=== PATIENT | male | born 1940 | race Caucasian/White ===

== ENCOUNTER 2016-02-17 06:37 | Inpatient (IN) | payer MEDICARE, OTHER ==
[2016-02-17] VITALS (8 sets, daily range): BP systolic 119–140; BP diastolic 67–79; PULSE 73–89; RESP 18–24; O2SAT 90–100
[~2016-02-17] VITALS: Ht 172.7 cm; Wt 88.6 kg
[2016-02-17] MEDS ORDERED: Polyethylene Glycol (PEG) 17 Gm Powder PO PRN (09:25)
[2016-02-17] MEDS ORDERED: Alum-Mag Hydrox-Simeth 30 mL Suspension PO PRN (09:25)
[2016-02-17 09:41] LABS: BASOPHILS % (AUTO) 0.5 % (0-3); EOSINOPHILS % (AUTO) 0 % (0-5); MONOCYTES % (AUTO) 2.5 % (4-12); Mean Corpuscular Hemoglobin 34.7 pg (27.0-35.0); Mean Corpuscular Volume 108.7 fL (81-100); NEUTROPHILS % (AUTO) 93.7 % (40-74); Platelet Count 54 bil/L (150-400)
[2016-02-17] MEDS ORDERED: GABA-502 PO (10:26)
[2016-02-17] MEDS ORDERED: OMEP20CA11 PO (10:26)
[2016-02-17] MEDS ORDERED: PRE10 PO (10:26)
[2016-02-17] MEDS ORDERED: METF500T4 PO (10:26)
[2016-02-17] MEDS ORDERED: WARF2.5T82 PO (10:26)
[2016-02-17] MEDS ORDERED: ADAL40PE SQ (10:26)
[2016-02-17] MEDS ORDERED: CALC3.8S NASAL (10:26)
[2016-02-17] MEDS ORDERED: CHOL10008 PO (10:27)
[2016-02-17] MEDS ORDERED: 0.9% Sodium Chloride 1,000 ML IV ONE (10:30)
[2016-02-17] MEDS ORDERED: Glucose 40% Oral Gel 15 Gm Tube PO PRN (10:30)
[2016-02-17] MEDS ORDERED: METH2.5T PO (10:33)
[2016-02-17] MEDS ORDERED: LEUC5TAB PO (10:35)
--- NOTE | 2016-02-17 11:23 | NUR ---
PCC Admit Pt admitted from [facility]. Transported by ambulance. Report received from Leilani madrigal RN. Pt vitals WNL, Alert and oriented x3, pt demonstrates some memory deficits with word searching. Pt positive for Influenza Type A. Placed on Droplet precautions. Due to report of confusion and recent Hx of falls pt placed on Todd bed alarm.
[2016-02-17] MEDS ORDERED: predniSONE 5 mg Tablet PO ONE (11:55)
[2016-02-17] MEDS ORDERED: predniSONE 1 mg Tablet PO ONE ×2 (11:55→13:20)
--- NOTE | 2016-02-17 12:09 | DRSVH ---
PROCEDURE: X-RAY CHEST, TWO VIEWS ([id number]) INDICATIONS: other TECHNIQUE: 2 views of the chest were acquired. COMPARISON: [facility], CT, THORAX WITHOUT CONTRAST, 05/13/2014, 14:39. [facility], CR, CH EST 2 VIEW, 04/22/2014, 17:36. FINDINGS: Surgical changes and devices: None. Lungs and pleura: No pleural effusions or pneumothorax. Lungs are clear. Mediastinum: The thoracic aorta is markedly tortuous. Heart size is normal. Bones and chest wall: No suspicious bony abnormalities. Soft tissues appear unremarkable. IMPRESSION: Marked tortuosity of the thoracic aorta unchanged from prior studies. No acute cardiopulm onary findings. Dictated by: Roseanne Whipple M.D. on 02/17/2016 at 12:07 Approved by: Roseanne Whipple M.D. on 02/17/2016 at 12:07
[2016-02-17] MEDS: Albuterol-Ipratropium 3 mL Inhalation Solution NEB SCH ×3 (14:34→20:35)
--- NOTE | 2016-02-17 17:14 | NUR ---
Mentation Upon initial assessment pt's mentation demonstrated memory loss, word searching and delayed responses. Over shift Pt mentation has improved significantly. Pt has been using call light appropriately, and waiting for staff help for his needs. Pt's conversation is more fluid and he states that his thought process is much clearer.
--- NOTE | 2016-02-17 18:27 | PCM.HPMED ---
Subjective Date of Service Feb 17, 2016 Primary Provider: Admitting Physician: Alexandra Curran MD Primary Care Physician: Leilani Sultana MD Attending Physician: Alexandra Curran MD Admit Status: Direct Admit (From [facility]) Chief Complaint: Ground level fall Shortness of breath History of Present Illness: Patient is a 76 y.o. M with medical history of sweets syndrome, DVT anticoagulated with warfarin, adrenal insufficiency, chronic dyspnea, chronic steroid use, osteopenia, hyperthyroidism. Patient transferred from [facility] for worsening shortness of breath, positive influenza A, post ground level fall on warfarin. Patient stated that he began to feel dizzy and short of breath two days ago precipitating his first fall onto concrete where he stated he tripped and hit his nose. Patient stated that with his shortness of breath he has had a cough, headache, fever and chills, runny nose. Patient did not seek medical attention. The follow day patient woke up feeling dizzy and nauseous, while walking around his house patient stated his shortness of breath and dizziness worsened and he fell onto carpet hitting his head. Patient is able to remember falling and able to recall events before and after his fall. Patient reports that his is sick at home with the flu and he received the flu vaccine but had a "bad reaction" to it. Patient denies diarrhea, constipation, loss of bowel and bladder control. Review of Systems: Comprehensive review of systems conducted and was negative except for the pertinent positives listed above. 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 External ears normal. Eyes: PERRLA, EOMI. Anicteric sclerae. Mouth: Mouth Normal, Mucous Membranes Moist/[place] Neck: Neck supple with full range of motion. Chest & Lungs: Equal chest rise and fall, no chest wall tenderness, On auscultation diminished breath sounds at bases bilaterally diffuse crackles, wheezes, no rhonchi. Cardiovascular: Regular Rate/Rhythm, Normal S1, Normal S2, No Murmurs/Rubs/ Gallops Abdomen: Non-tender, Non-distended, No masses, Normoactive bowel tones, Soft Musculoskeletal: Normal Range of Motion Extremities: Multiple healing ulcerations present legs below knee anterior and posterior erythematous without purulent discharge, No cyanosis/clubbing/edema bilaterally Neurological: Confusion with long-term memory deficit, Grossly Neurologically Intact, Cranial Nerves 2-12 Intact, Normal Speech, Strength Normal 4/4 ext, Sensation Intact, Cerebellar Function nl Finger-Nose, Cerebellar Function nl Heel-Barron, Reflexes Normal Lab and Diagnostics Labs Laboratory Tests Test 02/17/16 09:35 White Blood Count 5.5th/mm3 (3.8-10.1) Red Blood Count 2.42mil/mm3 (4.40-5.80) Hemoglobin 8.4g/dL (13.8-17.2) Hematocrit 26.3% (41.0-50.0) Mean Corpuscular Volume 108.7fL (81-100) Mean Corpuscular Hemoglobin 34.7pg (27.0-35.0) Mean Corpuscular Hemoglobin Concent 31.9% (32.0-37.0) Red Cell Distribution Width 15.8% (12.3-15.4) Platelet Count 54bil/L (150-400) Neutrophils (%) (Auto) 93.7% (40-74) Lymphocytes (%) (Auto) 2.2% (14-46) Monocytes (%) (Auto) 2.5% (4-12) Eosinophils (%) (Auto) 0% (0-5) Basophils (%) (Auto) 0.5% (0-3) Sodium Level 135mEq/L (134-144) Potassium Level 4.5mEq/L (3.5-5.2) Chloride Level 100mEq/L (97-108) Carbon Dioxide Level 22mmol/L (18-29) Blood Urea Nitrogen 16mg/dL (8-27) Creatinine 0.94mg/dL (0.76-1.27) Estimat Glomerular Filtration Rate 83mL/min (>59) Glucose Level 210mg/dL (60-99) Calcium Level 8.4mg/dL (8.5-10.1) Total Bilirubin 0.6mg/dL (0.0-1.2) Aspartate Amino Transf (AST/SGOT) 19U/L (0-50) Alanine Aminotransferase (ALT/SGPT) 20U/L (0-44) Alkaline Phosphatase 46U/L (25-160) Total Protein 7.0g/dL (6.4-8.4) Albumin 3.5g/dL (3.4-5.0) Procalcitonin 0.32ng/mL (See Comment) Result Diagram: 02/17/16 0935 X-Rays, CTs and MRIs X-RAY CHEST, TWO VIEWS IMPRESSION: Marked tortuosity of the thoracic aorta unchanged from prior studies. No acute cardiopulmonary findings. Dictated by: Roseanne Whipple M.D. on 02/17/2016 at 12:07 Approved by: Roseanne Whipple M.D. on 02/17/2016 at 12:07 Assessment & Plan Patient is a 76 y.o. M with medical history of sweets syndrome, DVT anticoagulated with warfarin, adrenal insufficiency, chronic dyspnea, chronic steroid use, osteopenia, hyperthyroidism. Patient transferred from [facility] for treatment of worsening shortness of breath, positive influenza A, post ground level fall on warfarin. 1. Ground level fall, present on admission, active - Patient on Warfarin INR 1.7 - Chronically low platelet PLT 02/17/16 90 - CT Head done at [facility] negative for acute intracranial process - MR Brain ordered, pending - Hold Warfarin 2. Viral URI + Influenza A, present on admission, active - + Influenza A completed at [facility] - Tamiflu 75 mg total 10 doses - 1 L IV Fluid NS @ 80 mls/hr given - Monitor Vitals Q4 - Bed rest with single assist to bathroom - Full diet - CXR negative for pulmonary effusion - Procalcitonin, 0.32 - Albuterol/ipatropium NEB Q4 PRN for SOB - Acetaminophen 650 mg Q6 PO PRN pain/fever Chronic Illnesses present on admission: 3.Sweets Syndrome -Continue prednisone 14 mg QD -Patient followed by RheumatologistDrt. Gómez at [facility] fax: [phone], requests MR results when completed 4.Steroid induced DM -Low dose correctional insulin protocol ordered - A1C ordered 5. Right leg ulcer - Monitor, consult wound care if needed 6. Adrenal insufficiency - Continue Prednisone 7. Iodine induced hyperthyroidism - TSH ordered, continue to monitor 8.Steroid induced osteoporosis - Continue to monitor 9. DVT, prothrombin 2 gene mutation - Hold Warfarin until MR results, consider restarting if negative brain MR PRNs Senna Miralax Zofran Patient is admitted under inpatient status with expected length of stay greater than 2 midnights due to severity of presenting symptoms, risk of adverse event, and complexity of treatment plan. DVT prophylaxis: SCDs in place . Pain Evaluation: Adequate Pain Control VTE Prophylaxis: SCDs Resuscitation Status: CPR: Attempt Resuscitation Attending Statement The patient was seen and examined together with Dr. Lorenzo on 02/17/2016 and I agree with the history, exam and plan as outlined in the note above. . MATILDE LORENZO DO Feb 17, 2016 10:30 Luis Alberto Sheikh MD Feb 18, 2016 15:22
--- NOTE | 2016-02-17 19:47 | DRSVH ---
PROCEDURE: MRI BRAIN WITH AND WITHOUT CONTRAST ([id number]) INDICATIONS: ground level fall on Coumadin TECHNIQUE: Noncontrast axial T1 spin echo, axial T2 fast spin echo, sagittal and axial FLAIR, coronal T2 fast sp in echo, axial gradient echo, axial diffusion and ADC through the brain. After the administration of contrast, axial and coronal 3D VIBE or T1 spin echo with fat saturation through the brain. COMPARISON: [facility], CT, HEAD WITHOUT CONTRAST, 02/17/2016, 2:14. FINDINGS: Image quality: Limited by motion. CSF Spaces: Basal cisterns are patent. No extra-axial fluid collections. Ventricles are normal in size and shape. Brain: No midline shift. No intracranial bleeds or masses. No abnormal intracranial enhancement. The brainstem appears normal. Diffusion-weighted images demonstrate no acute ischemic insults. No ar eas of encephalomalacia. No susceptibility weighted abnormalities are identified in the brain parenc hyma. Scattered punctate and confluent areas of increased T2 signal noted in the periventricular, stock bcortical and pontine white matter tracts compatible with mild to moderate chronic microvascular isch emic changes. Normal intravascular flow voids are present. Skull and face: Calvarial marrow is normal in signal. Orbits appear normal. Sinuses: Mild mucosal thickening noted in the maxillary sinuses and scattered throughout the ethmoid air cells bilaterally. The mastoids appear clear. IMPRESSION: 1. No acute intracranial disease process. 2. Mild, diffuse volume loss. 3. [id number]-[id number] periventricular, subcortical and pontine white matter chronic microvascular isch emic changes. 3. Mild bilateral maxillary sinus and ethmoid air cell mucosal thickening. Please correlate with cl inical data. Dictated by: Melissa Mazariegos MD, PhD on 02/17/2016 at 19:46 Approved by: Melissa Mazariegos MD, PhD on 02/17/2016 at 19:46
[2016-02-18] VITALS (11 sets, daily range): BP systolic 118–140; BP diastolic 64–75; PULSE 67–100; RESP 18–22; O2SAT 93–99
[2016-02-18] MEDS: Albuterol-Ipratropium 3 mL Inhalation Solution NEB SCH ×6 (00:30→20:14)
[2016-02-18 05:35] LABS: BASOPHILS % (AUTO) 0.8 % (0-3); EOSINOPHILS % (AUTO) 4.3 % (0-5); MONOCYTES % (AUTO) 10.5 % (4-12); Mean Corpuscular Volume 108.8 fL (81-100); NEUTROPHILS % (AUTO) 69.6 % (40-74); Platelet Count 55 bil/L (150-400)
--- NOTE | 2016-02-18 07:53 | NUR ---
Respiratory Pt skipped midnight neb treatment, per RT was told pt preferred not to be woken at night. This morning w/ reassessment pt sound more wheezy and SOB, felt somewhat better with neb treatment and felt that repositioning self on side help him "move stuff" in his lungs, sats high 90 on 2.5L NC
[2016-02-18] MEDS ORDERED: predniSONE 20 mg Tablet PO SCH (08:30)
[2016-02-18] MEDS: predniSONE 5 mg Tablet PO SCH (09:21)
[2016-02-18] MEDS: predniSONE 1 mg Tablet PO SCH (09:21)
--- NOTE | 2016-02-18 12:39 | NUR ---
Transfer to [facility] Pt transferred to [facility] at 1230 to room 3014. Report given to Cristina Rider RN. Pt on droplet precautions for Influenza A. Transferred by W/C. Addendum: 02/18/16 at 1244 by GABRIEL WOODY RN Belongings gathered and accounted for, transferred with patient
--- NOTE | 2016-02-18 12:45 | NUR ---
Transfer to [facility] Patient arrived to unit via wheelchair. Patient alert and oriented. Denied chest pain/discomfort, pain, abdominal discomfort or nausea. Patient reporting sob with exertion and at rest. Patient saline locked and on room air. Neb treatment given prior to transfer. Addendum: 02/18/16 at 1432 by TULIO RDZ RN Rhonchi bilateral mid/lower lungs, wheezes throughout.
[2016-02-18] MEDS ORDERED: Albuterol-Ipratropium 3 mL Inhalation Solution NEB PRN (14:45)
--- NOTE | 2016-02-18 15:42 | PCM.PNMED ---
Subjective Date of Service Feb 18, 2016 Subjective Patient is a 76 y.o. M with medical history of sweets syndrome, DVT anticoagulated with warfarin, adrenal insufficiency, chronic dyspnea, chronic steroid use, osteopenia, hyperthyroidism. Patient transferred from [facility] for treatment of worsening shortness of breath, positive influenza A, post ground level fall on warfarin. Hospital Day 1 Overnight no events reported by nursing Today patient reports that he did not sleep well, and was tired this morning. He noted that he is breathing a harder than yesterday, is coughing more, has a sore throat. Patient denies fever, chills, nausea, vomiting, change in vision, ROS negative except as mentioned above Exam Vital Signs Vital Sign - Last Date Time Temp Pulse Resp B/P Pulse Ox O2 Delivery O2 Flow Rate FiO2 02/18/16 05:14 83 02/18/16 04:42 18 97 Nasal Cannula 3.00 02/18/16 04:08 36.7 134/74 Intake and Output 02/17/16 02/17/16 02/18/16 Cumulative From/Thru 15:00 23:00 07:00 02/17/16 08:58 - 02/18/16 06:03 Intake Total 1616 ml 420 ml 2036 ml Output Total 500 ml 550 ml 1050 ml Balance 1116 ml -130 ml 986 ml Intake Oral 1150 ml 420 ml 1570 ml IV Total 466 ml 466 ml Output Urine Total 500 ml 550 ml 1050 ml # Voids 2 2 Exam General: Alert, Oriented X3, Cooperative, non distressed, able to ambulate with assistance Head: Normocephalic, atraumatic. External ears normal. Eyes: PERRLA, EOMI. Anicteric sclerae. Mouth: Mouth Normal, Mucous Membranes Moist/[place] Neck: Neck supple with full range of motion. Chest & Lungs: Equal chest rise and fall, no chest wall tenderness, On auscultation coarse breath in all lung [place]kinson bilaterally diffuse wheezes, no rhonchi, no crackles. Cardiovascular: Regular Rate/Rhythm, Normal S1, Normal S2, No Murmurs/Rubs/ Gallops Abdomen: Non-tender, Non-distended, No masses, Normoactive bowel tones, Soft Musculoskeletal: Normal Range of Motion Extremities: Multiple healing ulcerations present legs below knee anterior and posterior erythematous without purulent discharge, No cyanosis/clubbing/edema bilaterally Neurological: Confusion with long-term memory deficit, Grossly Neurologically Intact, Cranial Nerves 2-12 Intact, Normal Speech, Strength Normal 4/4 ext, Sensation Intact, Cerebellar Function nl Finger-Nose, Cerebellar Function nl Heel-Barron, Reflexes Normal IVs and Medications Medications Reviewed: Medications were reviewed in detail Medications Prednisone 11 mg, currently on taper Calcitonin-princess Nasal [place] 1 puff QD Omeprazole 20 mg Metformin 500 mg BID Folic Acid 3 mg PO QD Gabapentin 300 mg TID Acetaminophen 650 mg PO PRN pain Adaliumab 40 mg SQ Prednisone 1 mg Daily Itraconazole 200 mg PO QD Vitamin D3 1000 U QD Methotrexate 10 MG PO QD Warfarin 2.5 mg PO QD Leucovorin 5 mg Lab and Diagnostics Laboratory Tests Test 02/18/16 05:28 White Blood Count 2.6th/mm3 (3.8-10.1) Red Blood Count 2.17mil/mm3 (4.40-5.80) Hemoglobin 7.6g/dL (13.8-17.2) Hematocrit 23.6% (41.0-50.0) Mean Corpuscular Volume 108.8fL (81-100) Mean Corpuscular Hemoglobin 35.0pg (27.0-35.0) Mean Corpuscular Hemoglobin Concent 32.2% (32.0-37.0) Red Cell Distribution Width 15.8% (12.3-15.4) Platelet Count 55bil/L (150-400) Neutrophils (%) (Auto) 69.6% (40-74) Lymphocytes (%) (Auto) 14.8% (14-46) Monocytes (%) (Auto) 10.5% (4-12) Eosinophils (%) (Auto) 4.3% (0-5) Basophils (%) (Auto) 0.8% (0-3) Sodium Level 136mEq/L (134-144) Potassium Level 4.3mEq/L (3.5-5.2) Chloride Level 102mEq/L (97-108) Carbon Dioxide Level 22mmol/L (18-29) Blood Urea Nitrogen 20mg/dL (8-27) Creatinine 0.94mg/dL (0.76-1.27) Estimat Glomerular Filtration Rate 83mL/min (>59) Glucose Level 174mg/dL (60-99) Lactic Acid Level 1.0mmol/L (0.4-2.0) Calcium Level 8.4mg/dL (8.5-10.1) Procalcitonin 0.32ng/mL (See Comment) Result Diagram: 02/18/1652702/18/16527 X-Rays, CTs and MRIs X-RAY CHEST, TWO VIEWS IMPRESSION: Marked tortuosity of the thoracic aorta unchanged from prior studies. No acute cardiopulmonary findings. Dictated by: Roseanne Whipple M.D. on 02/17/2016 at 12:07 Approved by: Roseanne Whipple M.D. on 02/17/2016 at 12:07 MRI Brain IMPRESSION: 1. No acute intracranial disease process. 2. Mild, diffuse volume loss. 3. Ixtm-[id number]-[id number] periventricular, subcortical and pontine white matter chronic microvascular ischemic changes. 3. Mild bilateral maxillary sinus and ethmoid air cell mucosal thickening. Please correlate with clinical data. Dictated by: Melissa Mazariegos MD, PhD on 02/17/2016 at 19:46 Approved by: Melissa Mazariegos MD, PhD on 02/17/2016 at 19:46 Assessment & Plan Patient is a 76 y.o. M with medical history of sweets syndrome, DVT anticoagulated with warfarin, adrenal insufficiency, chronic dyspnea, chronic steroid use, osteopenia, hyperthyroidism. Patient transferred from [facility] for treatment of worsening shortness of breath, positive influenza A, post ground level fall on warfarin. 1. Viral URI + Influenza A, present on admission, Improving - + Influenza A completed at [facility] - Tamiflu 75 mg total 10 doses started 02/17/16 - 1 L IV Fluid NS @ 80 mls/hr given - Monitor Vitals Q4 - Full diet - CXR negative for pulmonary effusion - Procalcitonin, 0.32 - Albuterol/ipatropium NEB Q4 PRN for SOB - Acetaminophen 650 mg Q6 PO PRN pain/fever - MRI brain shows thickening of maxillary sinuses, likely related to viral URI, consider acute on chronic sinusitis 2. Ground level fall, present on admission, resolved - Base line mcc memory deficit, mentation improving - Patient on Warfarin INR 1.7 02/17/16, - Chronically low platelet PLT 02/17/16 90 - CT Head done at [facility] negative for acute intracranial process - MR Brain ordered, negative for intracranial bleed - Hold Warfarin, restart once MRI brain negative for intracranial bleed. Chronic Illnesses present on admission 3.Sweets Syndrome -Continue prednisone 14 mg QD, restart taper 02/18/16 11 mg -Patient followed by RheumatologistDrt. Gómez at [facility] fax: [phone], requests MR results when completed 4.Steroid induced DM -Low dose correctional insulin protocol ordered - A1C ordered 5. Right leg ulcer - Monitor, consult wound care if needed 6. Adrenal insufficiency - Continue Prednisone taper 02/18/16 11 mg with goal of 1 mg QD 7. Iodine induced hyperthyroidism - TSH ordered, 1.18 8.Steroid induced osteoporosis - Continue to monitor 8. DVT, prothrombin 2 gene mutation - Hold Warfarin until MR results, consider restarting if negative brain MR PRNs Sensamira Buckleyx Zoan Patient is admitted under inpatient status with expected length of stay greater than 2 midnights due to severity of presenting symptoms, risk of adverse event, and complexity of treatment plan, plan to discharge tomorrow pending resolution of respiratory distress and weakness. DVT prophylaxis: SCDs in place VTE Prophylaxis: SCDs Resuscitation Status: CPR: Attempt Resuscitation Attending Statement The patient was seen and examined together with Dr. Lorenzo on 02/18/2016 and I agree with the history, exam and plan as outlined in the note above. . MATILDE LORENZO DO Feb 18, 2016 06:53 Luis Alberto Sheikh MD Feb 19, 2016 08:18
[2016-02-18 16:38] LABS: INR 1.27 ratio
[2016-02-18] MEDS: Benzocaine-Menthol Lozenge 2/Pkg PO PRN ×2 (18:26→20:53)
[2016-02-18] MEDS: guaiFENesin 600 mg ER12 Tablet PO SCH (20:50)
[2016-02-19 00:05] VITALS: PULSE 85; RESP 18; O2SAT 93
[2016-02-19] MEDS: Albuterol-Ipratropium 3 mL Inhalation Solution NEB SCH ×6 (00:05→20:13)
[2016-02-19 06:01] VITALS: BP 137/75; PULSE 82; RESP 18; O2SAT 92
[2016-02-19 07:13] LABS: Mean Corpuscular Hemoglobin 34.2 pg (27.0-35.0); Mean Corpuscular Volume 109.1 fL (81-100)
[2016-02-19 07:33] LABS: INR 1.2 ratio
[2016-02-19] MEDS: predniSONE 1 mg Tablet PO SCH (07:33)
[2016-02-19] MEDS: predniSONE 5 mg Tablet PO SCH (07:34)
[2016-02-19 08:55] VITALS: PULSE 88; RESP 18; O2SAT 94
[2016-02-19] MEDS: guaiFENesin 600 mg ER12 Tablet PO SCH ×2 (10:16→21:05)
[2016-02-19] MEDS: Ondansetron 2 mg/mL 2 mL Inj IVPUSH PRN (10:17)
--- NOTE | 2016-02-19 10:32 | NUR ---
nausea pt states that he feels nausea "coming on" this RN gave Zofran 4mg for prevention pt resting in bed
--- NOTE | 2016-02-19 10:49 | NUR ---
KY[facility] signed. SASKIA Nickerson
[2016-02-19] MEDS: 0.9% Sodium Chloride 1,000 ML IV SCH ×2 (10:58→21:05)
--- NOTE | 2016-02-19 11:32 | NUR ---
Social Work-initial assessment/readiness for discharge: data:See initial assessment. pt is a 76 y/o male who was admitted on 02/17/16 for influenza A per H&P. Pt's insurance is [facility] and PCP is Colt Christensen MD. EMR Reviewed. Pt's readmission score is 2. SW met with pt at bedside, SW role explained. Pt is alert and oriented x3. Pt resides at home with his in [place] where he remains independent with ADLS. Pt does drive and does not any DME. Pt has no HH or SNF history. Pt has no [facility] care or [facility] benefits. SW discussed DPOA/ advanced directive paperwork, pt states he has completed this, SW encouraged pt to bring a copy into the hospital. PT worked with pt and are recommending home with HH. SW discussed HH, HH choice list provided. Pt is interested in this, pt has no agency preference. SW referred to rotating calendar and made referral to [facility] for RN,PT,OT, and [facility], access given. Pt has questions about extra assistance at home, SW explained that pt's insurance will not pay for caregiving, but did discuss private pay caregiving and provided pt with resources. F2F in folder. Pt's son to provide transport home at discharge. SW will continue to follow. Assessment:pt who would benefit from HH. Plan:Pt to discharge home when medically stable via POV. Referral made to [facility] for RN,PT,OT, and [facility], access given. Private pay caregiving resources also provided. F2F in folder.SW will continue to follow. SASKIA Nickerson Addendum: 02/19/16 at 1143 by BLAIR SESAY Amended: Links added.
[2016-02-19 12:26] VITALS: PULSE 78; RESP 18; O2SAT 97
--- NOTE | 2016-02-19 13:38 | PCM.PNMED ---
Subjective Date of Service Feb 19, 2016 Subjective No overnight events. Patient complains of generalized malaise and achiness, mild headache which is aggravated by pressure from pillow with mild nausea, relieved by lying on side. Endorses not able to take deep breaths. Denies CP, SOB, fevers or chills. Exam Vital Signs Vital Sign - Last Date Time Temp Pulse Resp B/P Pulse Ox O2 Delivery O2 Flow Rate FiO2 02/19/16 08:55 88 18 94 Room Air 02/19/16 06:01 37.1 137/75 02/18/16 09:34 2.50 Intake and Output 02/18/16 02/18/16 02/19/16 Cumulative From/Thru 15:00 23:00 07:00 02/17/16 08:58 - 02/19/16 06:01 Intake Total 534 ml 840 ml 150 ml 3560 ml Output Total 825 ml 1875 ml Balance 534 ml 15 ml 150 ml 1685 ml Intake Oral 840 ml 150 ml 2560 ml IV Total 534 ml 1000 ml Output Urine Total 825 ml 1875 ml # Voids 3 3 8 # Bowel Movements 0 0 0 Exam General: AAO X3, in mild distressed, labored breathing with cough, ill- appearing Head: mild superficial bruising of 3cm in diameter area at upper right forehead , non-tender, non-erythematous, no swelling noted HEENT: PERRLA, EOMI. Anicteric sclerae, Mucous Membranes Moist Neck: Neck supple with full ROM Chest & Lungs: Equal chest rise and fall, Mild expiratory wheezes throughout, with bibasilar crackles. Cardiovascular: RRR, No Murmurs/Rubs/Gallops Abdomen: Soft Non-tender, Non-distended, No masses, Normoactive bowel tones, Extremities: Multiple healing ulcerations present on bilateral lower extremities, no open lesions identified. No cyanosis/clubbing/edema bilaterally Neurological: Normal Speech, no focal deficits Psych: Normal mood and affect IVs and Medications Medications Reviewed: Medications were reviewed in detail Lab and Diagnostics Result Diagram: 02/19/16 0704 02/19/16 0704 X-Rays, CTs and MRIs X-RAY CHEST, TWO VIEWS IMPRESSION: Marked tortuosity of the thoracic aorta unchanged from prior studies. No acute cardiopulmonary findings. Dictated by: Roseanne Whipple M.D. on 02/17/2016 at 12:07 Approved by: Roseanne Whipple M.D. on 02/17/2016 at 12:07 MRI Brain IMPRESSION: 1. No acute intracranial disease process. 2. Mild, diffuse volume loss. 3. Leox-nu-zrrinedi periventricular, subcortical and pontine white matter chronic microvascular ischemic changes. 4. Mild bilateral maxillary sinus and ethmoid air cell mucosal thickening. Please correlate with clinical data. Dictated by: Melissa Mazariegos MD, PhD on 02/17/2016 at 19:46 Approved by: Melissa Mazariegos MD, PhD on 02/17/2016 at 19:46 Assessment & Plan Patient is a 76 y.o. M with medical history of sweets syndrome, DVT anticoagulated with warfarin, adrenal insufficiency, chronic dyspnea, chronic steroid use, osteopenia, hyperthyroidism. Patient transferred from [facility] for treatment of worsening shortness of breath, positive influenza A, post ground level fall on warfarin. Day#2. 1. Viral URI + Influenza A, present on admission, Improving - + Influenza A completed at [facility] - Tamiflu 75 mg total 10 doses started 02/17/16 - 1 L IV Fluid NS @ 100 mls/hr due to poor oral intake - Full diet - CXR negative for pulmonary effusion - Procalcitonin, 0.32, 0.34 on repeat - DuoNEB Q4 PRN - MRI brain shows thickening of maxillary sinuses, likely related to viral URI, consider acute on chronic sinusitis 2. Ground level fall, present on admission, resolved - Base line oil heaterman memory deficit, mentation improving - Patient on Warfarin INR 1.7 02/17/16, - Chronically low platelet PLT at 64 today - CT Head done at [facility] negative for acute intracranial process - MR Brain negative for intracranial bleed - Warfarin, restarted 02/19/16 pharmacy to dose - PT eval pending Chronic Illnesses present on admission 3.Sweets Syndrome -Prednisone 14 mg QD, down to his usually dosing 02/19/16 11 mg -Patient followed by Property Technician Drt. Gómez at [facility] fax: [phone], requests MR results when completed 4.Steroid induced DM -Low dose correctional insulin protocol ordered - A1C ordered 5. Right leg ulcer, present on admission. Improving. - Patient seen by wound care - Monitor, consult wound care if needed 6. Adrenal insufficiency - Continue Prednisone taper 02/19/16 11 mg with goal of 1 mg QD 7. Iodine induced hyperthyroidism - TSH ordered, 02.22 8.Steroid induced osteoporosis - Continue to monitor 9. DVT, prothrombin 2 gene mutation - Warfarin restarted as above Pain/fever: Acetaminophen 650 mg Q6H PO PRN DVT prophylaxis: SCDs in place Dispo: Anticipate discharge home tomorrow. VTE Prophylaxis: SCDs VTE Mechanical Devices: Venous Foot Pump Resuscitation Status: CPR: Attempt Resuscitation Attending Statement The patient was seen and examined together with Dr. Day on 02/19/2016 and I agree with the history, exam and plan as outlined in the note above. Miguelina Day DO Feb 19, 2016 10:18 Jose Miguel Campbell MD Feb 20, 2016 12:18 Miguelina Day DO Feb 19, 2016 10:18
[2016-02-19 14:21] VITALS: BP 147/87; PULSE 84; RESP 18; O2SAT 94
[2016-02-19 20:40] VITALS: BP 141/73; PULSE 87; RESP 20; O2SAT 92
[2016-02-20] MEDS: Albuterol-Ipratropium 3 mL Inhalation Solution NEB SCH ×5 (00:01→20:08)
[2016-02-20 05:14] VITALS: BP 150/83; PULSE 102; RESP 22; O2SAT 94
[2016-02-20] MEDS: Ondansetron 2 mg/mL 2 mL Inj IVPUSH PRN (05:14)
--- NOTE | 2016-02-20 05:54 | NUR ---
Nausea/Fever/SOB 0500 pt has been feeling nauseated and having a fever of 38. Administered PRN Tylenol and Zofran. No complaints after. Pt also having SOB on RA, provide o2 for comfort and tolerating well. Will continue to monitor. Addendum: 02/20/16 at 0636 by PAULA SAUCEDO RN Pt met sepsis criteria 15 MD notified. No new orders. Will pass on to next shift.
[2016-02-20] MEDS: 0.9% Sodium Chloride 1,000 ML IV SCH ×2 (06:32→15:13)
[2016-02-20 07:05] LABS: Mean Corpuscular Hemoglobin 34.5 pg (27.0-35.0); Mean Corpuscular Volume 109.2 fL (81-100); Platelet Count 66 bil/L (150-400)
[2016-02-20 07:36] LABS: BASOPHILS % (AUTO) 1 % (0-3); EOSINOPHILS % (AUTO) 2 % (0-5); MONOCYTES % (AUTO) 9 % (4-12); NEUTROPHILS % (AUTO) 73 % (40-74)
[2016-02-20] MEDS: predniSONE 1 mg Tablet PO SCH (08:05)
[2016-02-20] MEDS: predniSONE 5 mg Tablet PO SCH (08:06)
[2016-02-20] MEDS: guaiFENesin 600 mg ER12 Tablet PO SCH (08:06)
[2016-02-20 09:09] VITALS: PULSE 78; RESP 20; O2SAT 95
[2016-02-20 09:40] LABS: INR 1.27 ratio
--- NOTE | 2016-02-20 09:57 | DRSVH ---
PROCEDURE: X-RAY CHEST ONE VIEW ([id number]) INDICATIONS: pneumonia TECHNIQUE: One view of the chest was acquired. COMPARISON: [facility], CR, XR CHEST 2VW, 02/17/2016, 10:45. FINDINGS: Surgical changes and devices: None. Lungs and pleura: No pleural effusions or pneumothorax. Lungs are difficult to accurately assess du e to chronic mild elevation of the right hemidiaphragm and reduced inspiration. However, mild alveol ar infiltration suggestive of pneumonia at the left lower lobe is found. Mediastinum: Mediastinal contours appear normal. Heart size is normal. Bones and chest wall: No suspicious bony lesions. Overlying soft tissues appear unremarkable. IMPRESSION: Mildly reduced inspiratory volume, chronically mildly elevated right hemidiaphragm. Mild bibasilar atelectasis. A small degree of left lower lung pneumonia could be superimposed. Dictated by: Cory Lunsford M.D. on 02/20/2016 at 9:56 Approved by: Cory Lunsford M.D. on 02/20/2016 at 9:56
[2016-02-20] MEDS ORDERED: Albuterol-Ipratropium 3 mL Inhalation Solution NEB PRN (10:14)
[2016-02-20] MEDS ORDERED: Albuterol 2.5 mg/3 mL Inhalation Solution NEB PRN (13:50)
--- NOTE | 2016-02-20 14:42 | PCM.PNMED ---
Subjective Date of Service Feb 20, 2016 Subjective Overnight, patient had fever, MAXIMUM TEMPERATURE 38C. Today, patient continued to feel unwell. Patient is to, sore throat secondary to coughing. Also reports fevers, this however, has been somewhat common due to Sweet syndrome. He states getting fevers sometime once or twice a day Exam Vital Signs Vital Sign - Last Date Time Temp Pulse Resp B/P Pulse Ox O2 Delivery O2 Flow Rate FiO2 02/20/16 09:09 78 20 95 Nasal Cannula 1.00 02/20/16 05:14 38.0 150/83 Intake and Output 02/19/16 02/19/16 02/20/16 Cumulative From/Thru 15:00 23:00 07:00 02/17/16 08:58 - 02/20/16 05:19 Intake Total 1566 ml 1103 ml 6229 ml Output Total 1875 ml Balance 1566 ml 1103 ml 4354 ml Intake Oral 800 ml 200 ml 3560 ml IV Total 766 ml 903 ml 2669 ml Output Urine Total 1875 ml # Voids 5 3 16 # Bowel Movements 1 1 Exam General: Fatigued HEENT: Normocephalic, atraumatic. External ears without defect. Pupils equal, round, and reactive to light and accommodation. Anicteric sclerae, moist conjunctivae, and no lid lag. Neck: Supple with full range of motion. No jugular venous distension. No bruits. No lymphadenopathy or thyromegaly. Cardiovascular: Regular rate and rhythm with no murmurs, rubs, or gallops appreciated Pulmonary: Wheezes and crackles bilaterally with right lung greater than left lung base. Abdomen: Bowel tones present. Soft, nontender, nondistended. No hepatosplenomegaly or masses appreciated. Extremities: No clubbing, cyanosis, edema, or lymphadenopathy appreciated. Skin: Normal temperature, turgor, and texture; no rash, ulcers, or subcutaneous nodules appreciated. Neurological: Cranial nerves grossly intact. Normal muscle strength, tone, and bulk. No known gait impairment. Psychiatric: Normal mood and affect. Alert and oriented to person, place, and time. Lab and Diagnostics Result Diagram: 02/20/16 0600 02/20/16 0600 X-Rays, CTs and MRIs X-RAY CHEST, TWO VIEWS IMPRESSION: Marked tortuosity of the thoracic aorta unchanged from prior studies. No acute cardiopulmonary findings. Dictated by: Roseanne Whipple M.D. on 02/17/2016 at 12:07 Approved by: Roseanne Whipple M.D. on 02/17/2016 at 12:07 MRI Brain IMPRESSION: 1. No acute intracranial disease process. 2. Mild, diffuse volume loss. 3. Gavf-ju-cnxzrlwh periventricular, subcortical and pontine white matter chronic microvascular ischemic changes. 4. Mild bilateral maxillary sinus and ethmoid air cell mucosal thickening. Please correlate with clinical data. Dictated by: Melissa Mazariegos MD, PhD on 02/17/2016 at 19:46 Approved by: Melissa Mazariegos MD, PhD on 02/17/2016 at 19:46 Assessment & Plan Patient is a 76 y.o. M with medical history of sweets syndrome, DVT anticoagulated with warfarin, adrenal insufficiency, chronic dyspnea, chronic steroid use, osteopenia, hyperthyroidism. Patient transferred from [facility] for treatment of worsening shortness of breath, positive influenza A, post ground level fall on warfarin. Day#2. Sepsis, not present on admission, active - Temp 38.0, HR 102, RR 22, hypertensive however on 02/20/16 - Chest x-ray and repeat unrevealing, procalcitonin trending down, 0.16 today - Likely sinusitis, lower possibility of pneumonia due to low procalcitonin. - Some concerns still of postviral pneumonia, low threshold to start HCAP abx treatment should breathing worsen. - Continue with fluids. - Antibiotics started. - Cultures blood and urine pending. Acute on chronic sinusitis, present on admission, active - MRI brain shows thickening of maxillary sinuses, likely related to viral URI, possible bacterial - Start Augmentin (02/20/16) and will need to continue for 10days total. Viral URI, present on admission, active - Positive Influenza A, present on admission, Improving - Tamiflu 75 mg twice a day started on 02/17/2016, must complete 10 dose course - DuoNEB Q4 Q4HWA and albuterol prn while in hospital Sweets Syndrome, present on admission, chronic, stable - Possible fever spike is due to neutrophilic activities. -Prednisone 14 mg QD, down to his usually dosing 02/19/16 11 mg -Patient followed by Well Treatment Offsider Drt. Gómez at [facility] fax: [phone], requests MR results when completed Thrombocytopenia, present on admission, improving - unclear low platelets is part atypical symptomatology of Sweet syndrome - Blood smear with path review ordered Ground level fall, present on admission, resolved - Some concern for intracranial bleed in the setting of warfarin use (INR 1.7 on 02/17/16) and thrombocytopenia. - Brain MRI were negative however. 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 Improving. - Patient seen by wound care - Monitor, consult wound care if needed Adrenal insufficiency - Continue Prednisone taper 02/19/16 11 mg with goal of 1 mg QD Iodine induced hyperthyroidism - TSH ordered, 1.18 Steroid induced osteoporosis - Continue to monitor Pain/fever: Acetaminophen 650 mg Q6H PO PRN DVT prophylaxis: SCDs in place Dispo: Anticipate discharge in 1-2 days pending workup for infection. VTE Prophylaxis: SCDs VTE Mechanical Devices: Venous Foot Pump Resuscitation Status: CPR: Attempt Resuscitation Javid Ma DO Feb 20, 2016 14:42
[2016-02-20 14:47] VITALS: BP 142/87; PULSE 79; RESP 22; O2SAT 96
[2016-02-20] MEDS: Amoxicillin-Clav 875-125 mg Tablet PO SCH ×2 (15:14→20:20)
[2016-02-20 15:47] LABS: COLOR,URINE YELLOW (YELLOW)
[2016-02-20 15:48] LABS: APPEARANCE,URINE CLEAR (CLEAR,HAZY); OCCULT BLOOD,URINE LARGE (NEGATIVE); UROBILINOGEN,URINE NORMAL (NORMAL)
--- NOTE | 2016-02-20 18:24 | NUR ---
Cough/fever Pt continues to have frequent, non-productive coughs and audible wheezing. Pt on 2L via NC to assist with respiratory effort. Pt denies any SOB. He did req PRN acetaminophen this AM for generalized aches, has remained afebrile throughout this shift. Currently resting in bed, call light in reach and bed in lowest, locked position.
[2016-02-20 20:08] VITALS: PULSE 89; RESP 18; O2SAT 95
[2016-02-20 22:03] VITALS: BP 161/81; PULSE 100; RESP 24; O2SAT 95
[2016-02-21] VITALS (11 sets, daily range): BP systolic 123–167; BP diastolic 64–80; PULSE 72–100; RESP 20–28; O2SAT 88–99
[2016-02-21] MEDS: Ondansetron 2 mg/mL 2 mL Inj IVPUSH PRN ×2 (00:21→21:08)
[2016-02-21] MEDS: 0.9% Sodium Chloride 1,000 ML IV SCH (01:14)
--- NOTE | 2016-02-21 06:14 | NUR ---
Febrile Pt is still having intermittent episodes of fever and tachycardia. 0600 pt had 38.6 temp with a pulse of 100 and rr 24. Administered acetaminophen 650mg and notified MD. Denies episodes of chest pain. Will continue to monitor.
[2016-02-21 07:15] LABS: INR 1.58 ratio
[2016-02-21] MEDS: Albuterol-Ipratropium 3 mL Inhalation Solution NEB SCH ×4 (07:32→21:20)
[2016-02-21 08:24] LABS: Mean Corpuscular Volume 108.3 fL (81-100); Platelet Count 53 bil/L (150-400)
[2016-02-21 08:34] LABS: Mean Corpuscular Hemoglobin 34.9 pg (27.0-35.0)
[2016-02-21] MEDS: predniSONE 5 mg Tablet PO SCH (09:17)
[2016-02-21] MEDS: Amoxicillin-Clav 875-125 mg Tablet PO SCH ×2 (09:17→20:04)
[2016-02-21] MEDS: predniSONE 1 mg Tablet PO SCH (09:18)
[2016-02-21 09:27] LABS: BASOPHILS % (AUTO) 2 % (0-3); EOSINOPHILS % (AUTO) 2 % (0-5); MONOCYTES % (AUTO) 4 % (4-12); NEUTROPHILS % (AUTO) 80 % (40-74)
--- NOTE | 2016-02-21 10:23 | NUR ---
[facility] Signed
--- NOTE | 2016-02-21 10:58 | PCM.PNMED ---
Subjective Date of Service Feb 21, 2016 Subjective Overnight events: Fever of 38.6 early this morning, resolved with APAP. Patient reports of no improvement, overall not feeling well. Endorses ongoing mild headaches. Denies CP, SOB. fevers, chills or nausea. Exam Vital Signs Vital Sign - Last Date Time Temp Pulse Resp B/P Pulse Ox O2 Delivery O2 Flow Rate FiO2 02/21/16 07:33 92 22 95 Nasal Cannula 1.50 02/21/16 06:06 38.6 151/76 Intake and Output 02/20/16 02/20/16 02/21/16 Cumulative From/Thru 15:00 23:00 07:00 02/17/16 08:58 - 02/21/16 06:12 Intake Total 1672 ml 1266 ml 9167 ml Output Total 600 ml 2475 ml Balance 1072 ml 1266 ml 6692 ml Intake Oral 475 ml 4035 ml IV Total 1197 ml 1266 ml 5132 ml Output Urine Total 600 ml 2475 ml # Voids 16 # Bowel Movements 0 1 Exam General: AAO X3, in moderate distress, labored breathing with cough, ill- appearing, needs to take pauses in between sentences Head: mild superficial bruising of 3cm in diameter area at upper right forehead , non-tender, non-erythematous, no swelling noted, improving HEENT: PERRLA, EOMI. Anicteric sclerae, Mucous Membranes Dry Neck: Neck supple with full ROM Chest & Lungs: Audible upper respiratory wheezes without stethoscope, Mild expiratory wheezes throughout, with bibasilar crackles L>R. Cardiovascular: RRR, No Murmurs/Rubs/Gallops Abdomen: Soft Non-tender, Non-distended, No masses, Normoactive bowel tones, Extremities: Multiple healing ulcerations present on bilateral lower extremities, no open lesions identified. No cyanosis/clubbing/edema bilaterally Neurological: Normal Speech, no focal deficits Psych: Normal mood and affect IVs and Medications Medications Reviewed: Medications were reviewed in detail Lab and Diagnostics Result Diagram: 02/20/16 0600 02/21/16 0620 X-Rays, CTs and MRIs X-RAY CHEST, TWO VIEWS IMPRESSION: Marked tortuosity of the thoracic aorta unchanged from prior studies. No acute cardiopulmonary findings. Dictated by: Roseanne Whipple M.D. on 02/17/2016 at 12:07 Approved by: Roseanne Whipple M.D. on 02/17/2016 at 12:07 MRI Brain IMPRESSION: 1. No acute intracranial disease process. 2. Mild, diffuse volume loss. 3. Lbjj-fi-trnchdyn periventricular, subcortical and pontine white matter chronic microvascular ischemic changes. 4. Mild bilateral maxillary sinus and ethmoid air cell mucosal thickening. Please correlate with clinical data. Dictated by: Melissa Mazariegos MD, PhD on 02/17/2016 at 19:46 Approved by: Melissa Mazariegos MD, PhD on 02/17/2016 at 19:46 Date of Service: 02/20/16 0919 X-RAY CHEST ONE VIEW ([id number]) IMPRESSION: Mildly reduced inspiratory volume, chronically mildly elevated right hemidiaphragm. Mild bibasilar atelectasis. A small degree of left lower lung pneumonia could be superimposed. Dictated by: Cory Lunsford M.D. on 02/20/2016 at 9:56 Assessment & Plan Patient is a 76 y.o. M with medical history of sweets syndrome, DVT anticoagulated with warfarin, adrenal insufficiency, chronic dyspnea, chronic steroid use, osteopenia, hyperthyroidism. Patient transferred from [facility] for treatment of worsening shortness of breath, positive influenza A, post ground level fall on warfarin. Day#4. Sepsis, not present on admission, active - Temp 38.0, HR 102, RR 22, hypertensive however on 02/20/16 - Chest x-ray and repeat unrevealing, procalcitonin trending down to 0.16 - Likely sinusitis, lower possibility of pneumonia due to low procalcitonin. - CXR 02/19 showed probable small left lower lobe pneumonia, no leukocytosis with procal decreasing - BCx no growth 24H, UCx no growth to date - Patient tolerating oral intake, IVF stopped Acute on chronic sinusitis, present on admission, active - MRI brain shows thickening of maxillary sinuses, likely related to viral URI, possible bacterial - Start Augmentin (02/20/16) and will need to continue for 10days total. Viral URI, present on admission, active - Positive Influenza A, present on admission, Improving - Tamiflu 75 mg twice a day started on 02/17/2016, must complete 10 dose course - DuoNEB Q4 Q4HWA and albuterol prn while in hospital Sweets Syndrome, present on admission, chronic, stable - Possible fever spike is due to neutrophilic activities. -Prednisone 14 mg QD, down to 11mg 02/19/16 -Will confirm regular dose with his rheumatology office Dr. Gómez [phone] -Patient followed by Client Account Assistant Dr. Gómez at [facility] fax: [phone], MR results sent Thrombocytopenia, present on admission, improving - unclear low platelets is part atypical symptomatology of Sweet syndrome - Blood smear with path review ordered Ground level fall, present on admission, resolved - Some concern for intracranial bleed in the setting of warfarin use (INR 1.7 on 02/17/16) and thrombocytopenia. - Brain MRI were negative however. 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 Improving. 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 Referral made to [facility] for RN,PT,OT, and MORTGAGE UNDERWRITER, VTE Prophylaxis: SCDs VTE Mechanical Devices: Venous Foot Pump Resuscitation Status: CPR: Attempt Resuscitation Time spent 30 minutes Attending Statement I have seen and evaluated patient at bedside, in addition to directly supervising care provided by resident physician. I agree with above documentation. Miguelina Day DO Feb 21, 2016 08:43 Oziel Rey DO Feb 21, 2016 16:00
[2016-02-21] MEDS: Benzocaine-Menthol Lozenge 2/Pkg PO PRN (12:13)
--- NOTE | 2016-02-21 14:59 | PCM.PHAPRO ---
Progress Ground level fall Shortness of breath WARFARIN DOSING PER PHARMACY Indication: Hx DVT, prothrombin 2 gene mutation INR goal: 2-3 Home dose: warfarin 2.5 mg daily DI: Augmentin, prednisone Additional Anticoagulation: N/A Antiplatelet tx: N/A Lab Date Result Dose INR 02/19/16 1.20 2 mg INR 02/20/16 1.27 3 mg INR 02/21/16 1.58 Hct/plt: 26.8/53 Note: - Plts have been trending down. Pt has hx of chronic low plts Plan: - Informed MD of down trending plts. Decided to continue low dose of warfarin because high risk of DVT and INR currently subtherapeutic - Will give one dose of warfarin 1 mg PO tonight - Pharmacy will continue to monitor INR/CBC/signs and symptoms of bleeding Trixie Carl PharmD Feb 21, 2016 14:59
--- NOTE | 2016-02-21 16:42 | NUR ---
Fever/discomfort/lungs Patient temp @ 0830 102.0. Temp @ 0915 99.9, temp @ 10.05 99.1. Patient temp then returned to normal limits. Patient reporting head ache pain 6/10 and throat pain 3/10. Tylenol not effective. Lungs continue to be coarse, with wheezes and rhonchi. Intermittent, non productive cough.
[2016-02-22] VITALS (14 sets, daily range): BP systolic 129–163; BP diastolic 65–83; PULSE 80–105; RESP 20–26; O2SAT 92–99
--- NOTE | 2016-02-22 04:48 | NUR ---
Temp/headache Highest temp this shift was 37.6. tylenol given for constant headache with moderate relief. Pt reported feeling/breathing a little better this shift. ambulated to the bathroom with less SOB and with SBA. gait steady.
[2016-02-22 06:36] LABS: Mean Corpuscular Hemoglobin 34.9 pg (27.0-35.0); Mean Corpuscular Volume 108.6 fL (81-100); Platelet Count 52 bil/L (150-400)
[2016-02-22 06:50] LABS: INR 1.65 ratio
[2016-02-22] MEDS: Albuterol-Ipratropium 3 mL Inhalation Solution NEB SCH ×4 (07:38→20:20)
[2016-02-22 07:53] LABS: BASOPHILS % (AUTO) 1 % (0-3); EOSINOPHILS % (AUTO) 0 % (0-5); MONOCYTES % (AUTO) 10 % (4-12); NEUTROPHILS % (AUTO) 68 % (40-74)
[2016-02-22] MEDS: Amoxicillin-Clav 875-125 mg Tablet PO SCH (09:16)
[2016-02-22] MEDS: predniSONE 1 mg Tablet PO SCH (09:16)
[2016-02-22] MEDS: predniSONE 5 mg Tablet PO SCH (09:16)
--- NOTE | 2016-02-22 11:24 | DRSVH ---
PROCEDURE: X-RAY CHEST ONE VIEW, PORTABLE ([id number]) INDICATIONS: labored breathing TECHNIQUE: One view of the chest was acquired. COMPARISON: [facility], CR, XR CHEST 2VW, 02/17/2016, 10:45. [facility], CR, XR CHEST 1VW, 02/20/2016, 9:29. FINDINGS: Surgical changes and devices: None. Lungs and pleura: Mid right lung airspace opacity redemonstrated in streaky densities within the righ t lung base not significantly changed. Left lung is clear. No pneumothorax. Large hiatal hernia re demonstrated. Mediastinum: Mediastinal contours appear normal. Heart size is normal. Bones and chest wall: No suspicious bony lesions. Overlying soft tissues appear unremarkable. IMPRESSION: 1. Air space opacity within the mid right lung no significantly changed consistent with atelectasis v ersus aspiration or pneumonia. 2. Presumed atelectasis involving the right lung base. 3. Hiatal hernia redemonstrated. Dictated by: Dewey VENTURA Interpreted: Zonia Aguilar MD on 02/22/2016 at 11:24 Transcribed by: RAMON on 02/22/2016 at 11:24 Approved by: Zonia Aguilar M.D. on 02/22/2016 at 16:21
--- NOTE | 2016-02-22 13:38 | CONS ---
[address] [address] CONSULTATION REPORT PATIENT: ALEXANDER MAGAÑA : 1940 MR#: [id number] ADMIT: 02/17/2016 JOB ID: [id number] DATE OF SERVICE: I thank Dr. Day for this timely consult. REASON FOR CONSULTATION: Complications of influenza in a patient with underlying immunosuppression, Sweet syndrome, and adrenal insufficiency. HISTORY OF PRESENT ILLNESS: The patient is an extremely complex, 76-year-old gentleman, who was admitted to this facility back five days ago on February 16. He has underlying history of Sweet syndrome, adrenal insufficiency, chronic dyspnea, chronic immunosuppression, and thyroid disease. He was transferred from [facility] after a short admission there. He was initially admitted after he was found to be profoundly short of breath and had a fall while on warfarin. He reported that both he and his had had a flu-like illness for a couple days associated with dry cough, headache, fevers, chills, and malaise. This was also associated with some nausea and perhaps dehydration. He fell at home and was taken to the hospital and was admitted briefly to [facility] and then transferred here. After his admission here, the patient was started on Tamiflu, as influenza A was diagnosed. ID consultation is requested at this time because the patient has just not improved that much while taking the Tamiflu. He continues to be quite short of breath and requiring nasal oxygen to perform any activity. He also continues to be quite lethargic and to complain intermittently of a moderately severe headache. Nurses report that, at times, he has been a bit confused and difficult to arouse even at various times. When I spoke to the patient this morning, he is easy to arouse, awake, and extremely pleasant. He is able to carry on a conversation without any difficulty and is fully oriented. He tells me he has a headache which comes and goes but it has been much worse the last couple days. He denies sore throat. He notes he is short of breath and has been for a long time with exertion, and it may be a bit worse currently. He also notes a bit of a dry cough but no productive cough or pleuritic chest pain. No significant GI symptoms. We discussed in detail his rheumatologic problems. I spoke to his plastic surgeon in [place], Dr. Hdz, and she told me that he is maintained on Humira, prednisone, and methotrexate. He has not been on any Bactrim prophylaxis for Pneumocystis as his prednisone dose is consistently kept below 20 mg. She also told me that the chronic lesions on his lower extremities are remnants of a dermatophytic process he had, which has apparently been completely cured. She told me that she saw him last week in clinic and was worried because he seemed to be a little bit confused and was quite weak. She had thought about ordering an MRI scan at that time of his brain, but she did not. PAST MEDICAL HISTORY: 1. Sweet syndrome, requiring methotrexate, prednisone in doses at 10-20 mg a day, and Humira. 2. Profound immunosuppression secondary to above. 3. History of DVT, on warfarin. 4. Adrenal insufficiency. 5. Osteopenia. 6. Hypothyroidism. 7. Chronic dyspnea. 8. Chronic neutropenia with possible history of myelodysplastic syndrome, though apparently this has not been conclusively proven. 9. Anemia. 10. Diabetes mellitus. SOCIAL HISTORY: The patient traveled worldwide when he worked for [employer]. He was unable to list for me all the countries he visited during his time there. He did not serve in the and did not live overseas apparently, however. He is a nonsmoker who drinks occasional glass of wine. FAMILY HISTORY: Negative for tuberculosis. TRAVEL HISTORY: He had worldwide travel when he worked for [employer], but since he has been retired, not much. He states he has not traveled to [place], [place], [place] area nor the [place] in the past few years. REVIEW OF SYSTEMS: Was done. The patient says he has a headache which is fairly severe this morning. There is no change in his vision, no sores in the mouth. No trouble swallowing. No sore throat. He has minimal dry cough and is chronically dyspneic, but it may be a little worse here recently. No chest pain. No nausea, vomiting, or diarrhea. No dysuria, urgency, or frequency. His legs feel a bit weaker than normal but otherwise negative. He denies any focal neurologic complaint. PHYSICAL EXAMINATION: Reveals an elderly gentleman in no acute distress. He has been afebrile since the when he spiked to 38.9. That was only of course yesterday morning. Since then, he has been afebrile and is now 37 degrees. His pulse is 92, respiratory rate 22, blood pressure 144/70. He is saturating 92% on 1 L. Examination of the head reveals no significant trauma or cellulitic-type change. His conjunctivae are pale bilaterally, consistent with his anemia. There is no conjunctivitis, however. Nose normal. Oral cavity without thrush, hairy leukoplakia or pharyngitis. The patient's neck is without adenopathy and supple. His lungs are notable for a few crackles along the right base when he is sitting up, but they are fairly unimpressive overall. Cardiac tones without significant murmur. Regular rate and rhythm noted. Abdomen soft and nontender. No suprapubic tenderness. No abnormalities of the scrotum or penis are noted. The patient does not have a Vernon catheter. Examination of the lower extremities reveals innumerable dark macular lesions which are said by Dr. Hdz to be the remnants of his disseminated dermatophytic infection of the lower extremities. These darkly pigmented macular areas are nontender and without warmth or drainage. Lower extremities without significant edema. Otherwise, no evidence of cellulitis. Notes in the chart say the patient has a right leg wound, but he states it has completely healed, and I cannot find any open wound. His peripheral pulses are reasonable and his extremities are perfused. There is no evident soft tissue infection. Neurologically, the patient is intact. He is able to carry out a full conversation and is oriented x3. His muscle strength is reasonable and he does not appear to have any obvious sensory or motor deficits. LABORATORIES: Include white count 3600, platelet count 52,000. The diff on that white count is basically normal except for 1% metamyelocytes and 1% myelocytes. Creatinine is 0.81. His procalcitonin is 0.16 and 0.17 on two measurements. Prior to that, he was around 0.3 when he first came in on three prior procalcitonin values. Urinalysis without white cells. Micro studies include a positive nasal screen for MRSA. Blood cultures are negative. Respiratory multiplex PCR positive for influenza A. Urine is culture negative. Sputum was obtained yesterday. It shows moderate polys and moderate mixed ashok. Group A strep throat culture shows no growth. IMAGING: Done here, includes an admission chest x-ray on the which was basically negative. Followup chest x-ray on the showed elevated right hemidiaphragm with some minimal atelectasis. A question about a small degree of pneumonia at the left base. The 3rd and last chest x-ray was done today. Shows airspace opacity in the mid right lung, atelectasis versus pneumonia. An MRI scan of the brain was done on the first day, back on February 16. Shows no acute intracranial process. There are some chronic microvascular ischemic changes seen. IMPRESSION: This is a difficult case because of the rather vague nature of the symptoms. The patient has Sweet syndrome and adrenal insufficiency and is chronically immunosuppressed by steroids, Humira, and methotrexate. 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 He was admitted here with what was clearly influenza, based on a positive influenza rapid screen. He was treated with Tamiflu and is now basically at the end of that therapy. His fevers seemed to have subsided and the patient is certainly not confused, though the nurses report at times he has been a bit somnolent. Right now, however he is sharp. It is unclear to me whether any infection is ongoing. We have negative blood cultures as well as multiple other negative cultures and procalcitonins x5 that are basically normal. This does not, of course, rule out more localized soft tissue or bone infections due to bacteria and does nothing to rule out fungi or viral processes. If the patient indeed has an underlying infection, the possibilities would include a meningitis, but it would have to be a very low-level process as his neck is supple and his mental status is normal. Other possibilities might include a developing pulmonary infection, which could be staph or strep following the flu, or perhaps some more opportunistic bug, considering his level of immunosuppression. I note that, at this point, his Tamiflu has been stopped and he is on oral Augmentin. I am not certain what the purpose of the oral Augmentin is at this juncture. RECOMMENDATIONS: 1. I would consider stopping the Augmentin so we can observe whatever disease process is ongoing here. 2. CT scan of the lungs without contrast should be done and I will order that. 3. Serum crypto antigen, LDH, Fungitell and Galactomannan will be ordered. 4. I do not think, at this point, we need to proceed to a lumbar puncture with his clear mental status, negative MRI of the brain basically, and supple neck, but I think we may need to move that direction if things do not improve. 5. Thank you very much for this consult.
--- NOTE | 2016-02-22 13:45 | PCM.PNMED ---
Subjective Date of Service Feb 22, 2016 Subjective Overnight event: Patient had fever or 37.6, Tylenol not effective. Today patient states his overall malaise has worsened. Endorses fevers and chills. Denies CP, SOB, nausea or vomiting. Exam Vital Signs Vital Sign - Last Date Time Temp Pulse Resp B/P Pulse Ox O2 Delivery O2 Flow Rate FiO2 02/22/16 09:21 Supplement Oxygen 02/22/16 08:57 37.0 93 21 144/70 93 2.00 Intake and Output 02/21/16 02/21/16 02/22/16 Cumulative From/Thru 15:00 23:00 07:00 02/17/16 08:58 - 02/22/16 04:50 Intake Total 400 ml 850 ml 09311 ml Output Total 575 ml 300 ml 3350 ml Balance -175 ml 550 ml 7067 ml Intake Oral 400 ml 850 ml 5285 ml IV Total 5132 ml Output Urine Total 575 ml 300 ml 3350 ml # Voids 16 # Bowel Movements 1 Exam General: AAO X3, in moderate distress, labored breathing, ill-appearing HEENT: PERRLA, EOMI. Anicteric sclerae, Mucous Membranes Dry Neck: Neck supple with full ROM Chest & Lungs: Coarse breath sounds, Mild expiratory wheezes throughout, with bibasilar crackles Cardiovascular: RRR, No Murmurs/Rubs/Gallops Abdomen: Soft Non-tender, Non-distended, No masses, Normoactive bowel tones, Extremities: Multiple healing ulcerations present on bilateral lower extremities, no open lesions identified. No cyanosis/clubbing/edema bilaterally Neurological: No focal deficits IVs and Medications Medications Reviewed: Medications were reviewed in detail Lab and Diagnostics Result Diagram: 02/22/16 0603 02/22/16 0603 X-Rays, CTs and MRIs X-RAY CHEST, TWO VIEWS IMPRESSION: Marked tortuosity of the thoracic aorta unchanged from prior studies. No acute cardiopulmonary findings. Dictated by: Roseanne Whipple M.D. on 02/17/2016 at 12:07 Approved by: Roseanne Whipple M.D. on 02/17/2016 at 12:07 MRI Brain IMPRESSION: 1. No acute intracranial disease process. 2. Mild, diffuse volume loss. 3. [id number] periventricular, subcortical and pontine white matter chronic microvascular ischemic changes. 4. Mild bilateral maxillary sinus and ethmoid air cell mucosal thickening. Please correlate with clinical data. Dictated by: Melissa aMzariegos MD, PhD on 02/17/2016 at 19:46 Approved by: Melissa Mazariegos MD, PhD on 02/17/2016 at 19:46 Date of Service: 02/20/16 0919 X-RAY CHEST ONE VIEW ([id number]) IMPRESSION: Mildly reduced inspiratory volume, chronically mildly elevated right hemidiaphragm. Mild bibasilar atelectasis. A small degree of left lower lung pneumonia could be superimposed. Dictated by: Cory Lunsford M.D. on 02/20/2016 at 9:56 Assessment & Plan Patient is a 76 y.o. M with medical history of sweets syndrome, DVT anticoagulated with warfarin, adrenal insufficiency, chronic dyspnea, chronic steroid use, osteopenia, hyperthyroidism. Patient transferred from [facility] for treatment of worsening shortness of breath, positive influenza A, post ground level fall on warfarin. Day#5. Sepsis, not present on admission, active - Temp 38.0, HR 102, RR 22, hypertensive however on 02/20/16 - Chest x-ray and repeat unrevealing, procalcitonin trending down to 0.16 - Likely sinusitis, lower possibility of pneumonia due to low procalcitonin. - CXR 02/19 showed probable small left lower lobe pneumonia, no leukocytosis with procal decreasing - BCx no growth 24H, UCx no growth to date - Patient tolerating oral intake, IVF stopped - Appreciate ID consult with time and expertise Viral URI, present on admission, active - Positive Influenza A, present on admission, Improving - Tamiflu 75 mg twice a day started on 02/17/2016, now complete - ARDS based on CXR and labs - DuoNEB Q4 Q4HWA and albuterol prn while in hospital - Keep oxygen above 92% Acute on chronic sinusitis, present on admission, active - MRI brain shows thickening of maxillary sinuses, likely related to viral URI, possible bacterial - Start Augmentin (02/20/16) and will need to continue for 10days total. Sweets Syndrome, present on admission, chronic, stable - Possible fever spike is due to neutrophilic activities. - On prednisone taper, 6mg - Patient followed by Head Of Measurement & Insights Dr. Gómez at [facility] fax: [phone], MR results sent Chronic thrombocytopenia, present on admission, improving - unclear low platelets is part atypical symptomatology of Sweet syndrome - Blood smear with path review ordered - Baseline records requested from hydraulic billet maker/oncologist Ground level fall, present on admission, resolved - Some concern for intracranial bleed in the setting of warfarin use (INR 1.7 on 02/17/16) and thrombocytopenia. - Brain MRI were negative however. 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 Improving. 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 Referral made to [facility] for RN,PT,OT, and SECOND FACING BASTER, VTE Prophylaxis: SCDs VTE Mechanical Devices: Venous Foot Pump Resuscitation Status: CPR: Attempt Resuscitation Time spent 30 minutes Attending Statement I have seen and evaluated patient at bedside in addition to directly supervising care provided by resident physician. I agree with above documentation. Pt has continued to demonstrate an attenuated recovery, actually appearing to have a decline in respiratory function through the day. Antibiotic coverage initiated as per ID recommendations, close observation continued. Miguelina Day DO Feb 22, 2016 09:53 Oziel Rey DO Feb 23, 2016 07:28
--- NOTE | 2016-02-22 14:08 | DRSVH ---
PROCEDURE: CT CHEST WITHOUT CONTRAST ([id number]) INDICATIONS: pulm infiltrates in ICH TECHNIQUE: Noncontrast 5 mm thick sections acquired from the pulmonary apices to the posterior costophrenic angl es. 7 mm thick coronal and sagittal MIP reformats were then acquired. For radiation dose reduction, the following was used: automated exposure control, adjustment of mA and/or kV according to patient size. COMPARISON: [facility], CT, THORAX WITHOUT CONTRAST, 05/13/2014, 14:39. FINDINGS: Image quality: Excellent. Lungs and pleura: Moderate ill-defined airspace opacities within the bilateral lungs are present, wit h mid and lower lung predominance, most suggestive of atypical pneumonia.. No pleural effusions or p neumothorax. Central and peripheral airways are patent and normal in caliber. Mediastinum: Heart size is normal. No pericardial effusion. No mediastinal adenopathy by size crit eria. Thoracic aorta and central pulmonary arteries are normal in size. Esophagus is normal in gema callie. No change in moderate hiatal hernia. Bones and chest wall: No suspicious bony lesions. No vertebral body compression fractures. No axil myra or supraclavicular adenopathy by size criteria. Thyroid gland is within normal limits. Abdomen: Visualized portions of the upper abdomen demonstrate a 40 mm diameter partially exophytic m ass within the lateral segment left hepatic lobe anteriorly, which demonstrates internal high density . This mass appears to have decreased slightly in size. IMPRESSION: 1. Moderate bilateral atypical pneumonia. 2. Decreased left hepatic lobe mass. 3. No change in moderate hiatal hernia. Dictated by: Migel Cortes M.D. on 02/22/2016 at 14:07 Approved by: Migel Cortes M.D. on 02/22/2016 at 14:07
--- NOTE | 2016-02-22 14:33 | NUR ---
Social Work-continued d/c planning: Data:EMR reviewed. Pt is on day 5 of hospitalization for positive Influenza per H&P. Pt will likely require several more days in the hospital. PT has cleared pt for home with HH services. Referral has been made to [facility] for RN,PT,OT, and YOUTH DIRECTOR. SW confirmed plan at bedside. Pt's son to provide transport home at discharge. F2F in folder. SW will continue to follow. Assessment:Pt to benefit from HH. Plan:Pt to discharge home when medically stable via POV. Referral has been made to [facility] for RN,PT,OT, and YOUTH DIRECTOR. F2F in folder. SW will continue to follow. SASKIA Nickerson
--- NOTE | 2016-02-22 15:06 | PCM.PHAPRO ---
Progress Ground level fall Shortness of breath WARFARIN DOSING PER PHARMACY Indication: Hx DVT, prothrombin 2 gene mutation INR goal: 2-3 Home dose: warfarin 2.5 mg daily DI: Augmentin, prednisone Additional Anticoagulation: N/A Antiplatelet tx: N/A Lab Date Result Dose INR 02/19/16 1.20 2 mg INR 02/20/16 1.27 3 mg INR 02/21/16 1.58 1 mg INR 02/22/16 1.65 Note: - Plts have been trending down. Pt has hx of chronic low plts Plan: - Will give one dose of warfarin 3 mg PO tonight - Pharmacy will continue to monitor INR/CBC/signs and symptoms of bleeding Trixie Carl PharmD Feb 22, 2016 15:06
[2016-02-22] MEDS ORDERED: 0.9% Sodium Chloride 250 ML ONE (17:44)
[2016-02-22] MEDS: Piperacillin-Tazo 3.375 Gm Inj 3.375 GM in Dextrose 5% Minibag Plus 50 ML IV SCH (17:52)
--- NOTE | 2016-02-22 17:56 | ABG ---
DateTimeAnalyzed 17:51:00 -_ pH ____7.463 - 7.350 7.450 pCO2 ___35.2__ -mmHg 35.0 45.0 pO2 ___68.6__ -mmHg 69.0 116 HCO3- ___24.9__ -mmol/L 22.0 26.0 ABE ____1.6__ -mmol/L -2.0 2.0 tHb ____7.5__ -g/dL O2Hb ___91.6__ -% COHb ____1.8__ -% MetHb ____0.9__ -% sO2 ___94.1__ -% 25.0 FIO2 ___24.0__ -% Drawn By jj - Date/Time Notified____ 17:56:00 -_ Liter_Flow ____1.0__ -L/min Oxygen Device 1 __CANNULA - Notified By jj - Notified Whom Dr Barb - B 744 -mmHg tO2 ____9.7__ -Vol% Marke test _Positive -
--- NOTE | 2016-02-22 18:38 | NUR ---
Confusion/Temp Pt has been afebrile most of the day, until approx 1700, when he was observed out of bed trying to void on the floor, by the MD and RT. Pt was redirected back to bed, pt was unsure where he was but was easily reoriented. Pt's tremors appear to be worsening, and pt has c/o of being hot and cold all day. At approx 1700, temp 38.1, pt was given APAP 650 mg, rechecked with T38.9, pt had removed blankets and when offered cold towel refused. MD aware of temp, and SOB. gave new order to upgrade pt to PCC status. Pt is currently resting in bed with call light within reach, bed low and locked, intentional rounding.
[2016-02-22] MEDS ORDERED: 0.9% Sodium Chloride 1,000 ML ONE (22:05)
[2016-02-22] MEDS: 0.9% Sodium Chloride 1,000 ML IV SCH (22:35)
[2016-02-23] VITALS (12 sets, daily range): BP systolic 118–160; BP diastolic 66–91; PULSE 71–105; RESP 20–28; O2SAT 92–100
[2016-02-23] MEDS ORDERED: Acetaminophen IV 1,000 MG in IV Premix 1 EACH IV ONE (00:05)
[2016-02-23] MEDS: Piperacillin-Tazo 3.375 Gm Inj 3.375 GM in Dextrose 5% Minibag Plus 50 ML IV SCH ×3 (00:54→18:06)
--- NOTE | 2016-02-23 04:03 | NUR ---
mentation/fever/O2 Pt is more sleepy this shift. able to wake up easy and answers simple yes/no questions. still c/o not feeling well or not getting any better. unable to stand at bedside to urinate; used urinal in bed. voided x2. IVF infusing. repositioning self in bed w/o difficulty. bed alarm on for safety. pt tried to get OOB when needing to urinate. Pt had a fever of 39.2. unable to take PO tylenol due to nausea and retching. Rec'd an order for IV tylenol and given. temp went down to 37.7. SpO2 in mid 80s when pt took his O2 off. mid 90s on 3L O2 via NC. still has persistent dry cough.
[2016-02-23 06:23] LABS: Mean Corpuscular Volume 107.3 fL (81-100); Platelet Count 52 bil/L (150-400)
[2016-02-23 06:49] LABS: INR 1.76 ratio
[2016-02-23 08:06] LABS: BASOPHILS % (AUTO) 2 % (0-3); EOSINOPHILS % (AUTO) 1 % (0-5); MONOCYTES % (AUTO) 12 % (4-12); NEUTROPHILS % (AUTO) 56 % (40-74)
[2016-02-23] MEDS: 0.9% Sodium Chloride 1,000 ML IV SCH ×2 (09:09)
[2016-02-23] MEDS ORDERED: predniSONE 1 mg Tablet PO ONE (09:10)
[2016-02-23] MEDS ORDERED: guaiFENesin DM 200-20 mg/10 mL Syrup PO PRN (09:20)
[2016-02-23] MEDS: Vancomycin Dose per Pharmacist XX SCH (09:50)
--- NOTE | 2016-02-23 10:20 | PROG NOTE ---
[address] [address] PROGRESS NOTE PATIENT: ALEXANDER MAGAÑA : 1940 MR#: [id number] ADMIT: 02/17/2016 JOB ID: [id number] DATE: 02/23/2016 INFECTIOUS DISEASE FOLLOW UP NOTE: REASON FOR FOLLOW UP: Influenza in a patient with underlying Sweet syndrome, adrenal insufficiency, myelodysplastic syndrome and fluctuating mental status. INTERVAL HISTORY: Overnight, the patient, who was quite alert yesterday, has become more obtunded. This is a quite worrisome to the medical team as well as his and both of them have approached us to discuss this case in greater detail today. Oddly, though the patient does not respond to questions or interact in any verbal or way, he does seem to follow some commands when asked to breathe deeply and so forth, but he does not initiate any actions or speech on his own. It is unclear this morning whether or not he has any complaints as, of course, we cannot talk to him but he has been febrile overnight. Note that he does have a febrile neural dermatosis in that he has Sweet syndrome and so the patient has fevers on a chronic basis. Also note that the patient's prednisone has been under a fairly aggressive taper as he started off a week or so ago on 14 mg of prednisone a day and has now been tapered to six. His tells us that previous tapers of even 1 mg often produce some subtle changes. PHYSICAL EXAMINATION: Reveals an obtunded gentleman who does occasionally follow commands but does not speak or seem to interact in any meaningful way. He has been febrile overnight as high as 39.2, which is the highest temperature he has had during this admission. His pulse is in the 80s, respiratory rate 26, blood pressure 152/70, saturating well on 2 L. Eyes without notable change and they do open at times. His lungs are mostly clear posteriorly with a few crackles at the bases but fairly unimpressive. The patient's neck is supple. His cardiac tones regular rate and rhythm without significant murmur. His abdomen is benign. We rolled the patient over and carefully examined his backside. There are no decubitus ulcers, skin breakdown or other changes. The nurse's report there is no diarrhea. IV sites appear benign. LABORATORIES: Today include a white count of 3500, hematocrit 22. Differential white blood count basically normal. Platelet count 52,000. His creatinine stable at 0.77. LDH we ordered yesterday slightly increased to 248. Procalcitonins have now been done five times, the most recent one is 0.17 and none of them has been higher than 0.35. Urinalysis without white cells. Crypto antigen, Fungitell and galactomannan all pending. Cultures have included the nasal screen for MRSA as well as the respiratory viral panel, which was positive for flu A. Follow up sputums done on the have been negative with just normal ashok and an unimpressive Gram stain. Imaging was reviewed with the team at the bedside. The CT scan of the chest shows some bibasilar infiltrate versus atelectasis and a fairly low lung volume. There is also a bit of ground-glass type infiltrates seen more on the right than the left lung. A sinus CT showed some minimal sinus thickening which was unimpressive. IMPRESSION: This is an extremely difficult case of a gentleman with underlying Sweet syndrome, adrenal insufficiency, chronic immunosuppression including TNF inhibitors and steroids and a possible myelodysplastic syndrome who was seen last week by his program director/music director he noted he had a little bit of confusion and weakness. This was not addressed as the patient did not seem all that impaired but he was subsequently admitted here with influenza and seemed to improve somewhat with Tamiflu therapy which has now concluded. Unfortunately the patient is now spiking significant fevers, which may be due to his underlying Sweet syndrome, and at times quite obtunded. It is unclear to me if he has any ongoing infection as we have negative blood cultures as well as negative procalcitonin. There is nothing in particular that would suggest an ongoing invasive fungal or mycobacterial process. Likewise I do not think he has meningoencephalitis causing his change in mental status which I think represents more of an encephalopathy than encephalitis. A major concern here is his dropping prednisone in association with confusion. His tells us that when his prednisone is dropped even 1 mg she can tell the difference in his overall behavior and functional level. He has been dropped 8 mg here in a week or so and I wonder if this is just too much too fast. RECOMMENDATIONS: 1. I would continue with the Zosyn we discussed and which was started yesterday as broad-spectrum coverage for sepsis. 2. 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 Linezolid would not be an option here as the patient is thrombocytopenic. Daptomycin would not be a first-line agent because of his pulmonary infiltrates and the possibility of a MRSA pulmonary infection. Ceftaroline and vancomycin would be our remaining options. In this case, I think vanco would be a reasonable option to add to the Zosyn while we attempt and figure out what is going on in this case. 3. The other added ingredient here I think which might be useful would be to give the patient a replacement dose of steroids for someone who is chronically prednisone dependent. A reasonable dose might be 100 q.8 of hydrocortisone for a couple of days and to see if his mental status and overall functional status dramatically improve. If they do, it may be that this is a diagnostic as well as therapeutic intervention and we may know the exact reason for his recent and confusing decline. Note that this case discussed in detail with Dr. Rey as well as the patient's family and the house staff.
[2016-02-23] MEDS ORDERED: Hydrocortisone 50 mg/mL 2 mL Inj IVPUSH ONE (10:25)
[2016-02-23] MEDS: Hydrocortisone 50 mg/mL 2 mL Inj IVPUSH SCH ×2 (10:25→18:05)
[2016-02-23] MEDS ORDERED: Acetaminophen IV 1,000 MG in IV Premix 1 EACH IV PRN (11:00)
[2016-02-23] MEDS: Ondansetron 2 mg/mL 2 mL Inj IVPUSH PRN (11:30)
[2016-02-23] MEDS ORDERED: Vancomycin Inj 1,750 MG in Dextrose 5% 500 ML IV ONE (11:30)
[2016-02-23] MEDS: Albuterol-Ipratropium 3 mL Inhalation Solution NEB SCH ×4 (11:52→21:02)
--- NOTE | 2016-02-23 12:50 | PCM.PNMED ---
Subjective Date of Service Feb 23, 2016 Subjective Overnight: Patient had another spike in temp. (Krissy his says this is due to his Sweet's syndrome.) Today, patient not able to interact appropriately. Not responding to "Krissy " at bedside. Exam Vital Signs Vital Sign - Last Date Time Temp Pulse Resp B/P Pulse Ox O2 Delivery O2 Flow Rate FiO2 02/23/16 10:39 82 02/23/16 10:09 38.2 28 160/73 96 Nasal Cannula 3.00 Intake and Output 02/22/16 02/22/16 02/23/16 Cumulative From/Thru 15:00 23:00 07:00 02/17/16 08:58 - 02/23/16 06:59 Intake Total 250 ml 650 ml 1003 ml 93621 ml Output Total 375 ml 600 ml 400 ml 4725 ml Balance -125 ml 50 ml 603 ml 7595 ml Intake Oral 250 ml 650 ml 200 ml 6385 ml IV Total 803 ml 5935 ml Output Urine Total 375 ml 600 ml 400 ml 4725 ml # Voids 1 17 # Bowel Movements 0 1 Exam General: Appears confused, not responding to verbal ques, in moderate distress with labored breathing, ill-appearing HEENT: EOMI. Anicteric sclerae, Mucous Membranes Dry Neck: Neck supple with full ROM Chest & Lungs: Coarse breath sounds, Mild expiratory wheezes throughout, with bibasilar crackles Cardiovascular: RRR, No Murmurs/Rubs/Gallops Abdomen: Soft Non-tender, Non-distended, No masses, Normoactive bowel tones, Extremities: Multiple healing ulcerations present on bilateral lower extremities, no open lesions identified. No cyanosis/clubbing/edema bilaterally , not cyanotic but cold feet Neurological: Altered mental status IVs and Medications Medications Reviewed: Medications were reviewed in detail Lab and Diagnostics Result Diagram: 02/23/16 0554 02/23/16 0554 X-Rays, CTs and MRIs X-RAY CHEST, TWO VIEWS IMPRESSION: Marked tortuosity of the thoracic aorta unchanged from prior studies. No acute cardiopulmonary findings. Dictated by: Roseanne Whipple M.D. on 02/17/2016 at 12:07 Approved by: Roseanne Whipple M.D. on 02/17/2016 at 12:07 MRI Brain IMPRESSION: 1. No acute intracranial disease process. 2. Mild, diffuse volume loss. 3. Haij-mj-ftxoddye periventricular, subcortical and pontine white matter chronic microvascular ischemic changes. 4. Mild bilateral maxillary sinus and ethmoid air cell mucosal thickening. Please correlate with clinical data. Dictated by: Melissa Mazariegos MD, PhD on 02/17/2016 at 19:46 Approved by: Melissa Mazariegos MD, PhD on 02/17/2016 at 19:46 Date of Service: 02/20/16 0919 X-RAY CHEST ONE VIEW ([id number]) IMPRESSION: Mildly reduced inspiratory volume, chronically mildly elevated right hemidiaphragm. Mild bibasilar atelectasis. A small degree of left lower lung pneumonia could be superimposed. Dictated by: Cory Lunsford M.D. on 02/20/2016 at 9:56 Assessment & Plan Patient is a 76 y.o. M with medical history of sweets syndrome, DVT anticoagulated with warfarin, adrenal insufficiency, chronic dyspnea, chronic steroid use, osteopenia, hyperthyroidism. Patient transferred from [facility] for treatment of worsening shortness of breath, positive influenza A, post ground level fall on warfarin. Day#6. Sepsis, not present on admission, active - Temp 38.0, HR 102, RR 22, hypertensive however on 02/20/16 - Chest x-ray and repeat unrevealing, procalcitonin trending down to 0.16 - CXR 02/19 showed probable small left lower lobe pneumonia, no leukocytosis with procal decreasing - CT chest showed atypical pneumonia, started on Zosyn, Vanc - Repeat BCx pending - IVF restarted - Appreciate ID consult with time and expertise - Recent decompensation maybe attributable to steroid taper, will give trial of steroid boost as noted below Viral URI, present on admission, active - Positive Influenza A, present on admission, Improving - Tamiflu 75 mg twice a day started on 02/17/2016, now complete - Unlikely to be ARDS based on CXR and labs - DuoNEB Q4 Q4HWA and albuterol prn while in hospital - Keep oxygen above 92% Acute on chronic sinusitis, present on admission, active - MRI brain shows thickening of maxillary sinuses, likely related to viral URI, possible bacterial - Covered with Zosyn Sweets Syndrome, present on admission, chronic, stable - Possible fever spike is due to neutrophilic activities. - On prednisone taper, 6mg - Patient followed by Digital Commentator Dr. Gómez at [facility] fax: [phone], MR results sent - Per , patient has been on steroids for past 6 years, does not tolerating even the smallest taper well - 100mg IV Hydrocortisone given once, followed by 50mg Q8H Chronic thrombocytopenia, pancytopenia, present on admission, worsening - per , patient has been worked up at [facility] for this and has not been able to find any etiology - unclear low platelets is part atypical symptomatology of Sweet syndrome - Blood smear with path review pending - Appreciate hematology consult with time and expertise Ground level fall, present on admission, resolved - Some concern for intracranial bleed in the setting of warfarin use (INR 1.7 on 02/17/16) and thrombocytopenia. - Brain MRI were negative however. 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 Improving. 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 Referral made to [facility] for RN,PT,OT, and [employer], VTE Prophylaxis: SCDs VTE Mechanical Devices: Venous Foot Pump Resuscitation Status: CPR: Attempt Resuscitation Time spent 35 minutes Attending Statement I have seen and directly evaluated patient at bedside in addition to directly supervising care provided by resident physician. I agree with above documentation. Pt demonstrated significant improvement in mentation by afternoon, a few hours following administration of first dose of hydrocortisone, this would support contribution at the very least, of adrenal insufficiency in pt's acute decompensation. Will continue to monitor for other possible contributing factors , continue steroids as previously RX'd. Miguelina Day DO Feb 23, 2016 10:46 Oziel Rey DO Feb 23, 2016 16:22
--- NOTE | 2016-02-23 15:21 | PCM.PHAPRO ---
Progress Ground level fall Shortness of breath WARFARIN DOSING PER PHARMACY Indication: Hx DVT, prothrombin 2 gene mutation INR goal: 2-3 Home dose: warfarin 2.5 mg daily DI: hydrocortisone, zosyn Additional Anticoagulation: N/A Antiplatelet tx: N/A Lab Date Result Dose INR 02/19/16 1.20 2 mg INR 02/20/16 1.27 3 mg INR 02/21/16 1.58 1 mg INR 02/22/16 1.65 3 MG INR 02/23/16 1.76 Note: - Plts have been trending down. Pt has hx of chronic low plts Plan: - Will give one dose of warfarin 3 mg PO tonight - Pharmacy will continue to monitor INR/CBC/signs and symptoms of bleeding Trixie Carl PharmD Feb 23, 2016 15:21
--- NOTE | 2016-02-23 15:36 | PCM.PHAPRO ---
Progress Ground level fall Shortness of breath VANCOMYCIN DOSING PER PHARMACY MRSA Screen + for MRSA Indication: Possible MRSA pulmonary infxn Labs: SCr: 0.77 WBC: 3.5 Pt spiked fever early this morning (38.2) Other abx: Zosyn Note: Culture info is currently negative but unsure whether fevers spiking are due to sweets syndrome or to possible infection. Plan - Will give loading dose of vancomycin 1750 mg IV once - Due to pt's age and other ongoing problems, will dose pt more conservatively - Will dose of vancomycin 1000 mg IV q12 - Will draw trough on 02/25/16 @ 0330 - Pharmacy will continue to monitor labs as appropriate Trixie Carl PharmD Feb 23, 2016 15:36
--- NOTE | 2016-02-23 19:15 | NUR ---
IV Hydrocortisone Pt unable to be reoriented, unwilling to take PO meds. Provider assessed with at bedside. IV hydrocortisone ordered. Mentation clearing after 1 hr and able to name his and follow commands. By end of shift pt feeding self, oriented and asking questions about medication dosages. IV hydrocortisone Q8 ordered at this time.
[2016-02-23] MEDS: Insulin LISPRO Medium-Dose Scale SUBQ SCH (22:50)
[2016-02-24] VITALS (11 sets, daily range): BP systolic 120–150; BP diastolic 61–74; PULSE 64–116; RESP 18–24; O2SAT 94–100
[2016-02-24] MEDS: Piperacillin-Tazo 3.375 Gm Inj 3.375 GM in Dextrose 5% Minibag Plus 50 ML IV SCH ×3 (00:58→20:27)
[2016-02-24] MEDS: 0.9% Sodium Chloride 1,000 ML IV SCH ×3 (02:12→22:20)
[2016-02-24] MEDS: Hydrocortisone 50 mg/mL 2 mL Inj IVPUSH SCH ×2 (02:13→12:33)
[2016-02-24] MEDS ORDERED: 0.9% Sodium Chloride 250 ML ONE (04:02)
[2016-02-24] MEDS: Vancomycin Inj 1,000 MG in IV Premix 1 EACH IV SCH ×2 (04:26→16:20)
--- NOTE | 2016-02-24 05:37 | NUR ---
Mentation Pt A&Ox3 able to take PO meds and sit at the edge of the bed. Pt has continued dry cough with no sputum production. Pt not out of bed this shift, Able to turn independently. No C/O CP, SOB or Pain. VSS and Tele SR 70's.
[2016-02-24 06:59] LABS: Mean Corpuscular Hemoglobin 35.1 pg (27.0-35.0); Mean Corpuscular Volume 105.8 fL (81-100); Platelet Count 50 bil/L (150-400)
[2016-02-24 07:33] LABS: D-Dimer < 0.5 mg/L FEU (<0.50); INR 2.01 ratio
[2016-02-24] MEDS: Albuterol-Ipratropium 3 mL Inhalation Solution NEB SCH ×3 (07:42→16:31)
[2016-02-24] MEDS: Insulin LISPRO Medium-Dose Scale SUBQ SCH ×4 (08:23→22:00)
[2016-02-24 08:30] LABS: BASOPHILS % (AUTO) 0 % (0-3); EOSINOPHILS % (AUTO) 1 % (0-5); MONOCYTES % (AUTO) 11 % (4-12); NEUTROPHILS % (AUTO) 60 % (40-74)
[2016-02-24] MEDS: Vancomycin Dose per Pharmacist XX SCH (08:30)
--- NOTE | 2016-02-24 09:02 | CCS CONS ---
[facility] [address] [place] [id number] MEDICAL ONCOLOGY NEW PATIENT REPORT PATIENT: ALEXANDER MAGAÑA : 1940 MR#: [id number] DATE: 02/17/2016 JOB ID: [id number] DATE: 02/23/2016 REFERRING PHYSICIAN: Jesika Roldan MD REASON FOR REFERRAL: Evaluation of pancytopenia. HISTORY OF PRESENT ILLNESS: The patient is a very pleasant 75-year-old male seen in [facility] Emergency Department on February 17, 2016 after he had a ground level fall with trauma to the head. The patient is currently on Coumadin for an underlying diagnosis of prothrombin II gene mutation. Initial workup included CT of the head without contrast on February 17, 2016 showing no acute intracranial bleeding or skull fracture. The patient was found to have altered mental status as well as antecedent upper respiratory symptoms including shortness of breath. Plain film dated February 17, 2016 at [facility] also reporting right lower lobe atelectasis with possible pneumonia. The patient's blood work from February 17, 2016 came back positive for influenza A on PCR from peripheral blood. The patient was subsequently transferred to [facility] on February 17, 2016. Initial workup included MRI of the brain with and without contrast which showed no acute intracranial disease process. LABORATORY DATA: On admission dated February 17, 2016 reporting a white blood cell count of 5.5, hemoglobin 8.4, hematocrit 26.3 with a platelet count of 54. Differential reporting 93.7 percent neutrophils, 2.2% lymphocytes, and 2.5% monocytes. Over the past six days, the patient's white blood cell counts have slowly trended downward most recently on February 23, 2016 white cell count 3.5, hemoglobin 7.2, hematocrit 22.1, MCV 107 and platelet count was . The patient has been during the interval treated with a seven day course of . Blood cultures to date have been positive for influenza A from a nasopharyngeal swab dated February 20, 2016. Clinically, the patient continues to have bouts of alternating mental status/delirium. He is currently on stress doses of steroids. On visit today, the patient was feeling well and more lucid in his thought process. He states that prior to his admission he was having increasing respiratory symptoms, which is also had. Overall, he feels slight improvement REVIEW OF SYSTEMS: Also significant for the absence of any unusual bruising or bleeding. He does have a history of Sweet syndrome and he has had no flares over the past month. ALLERGIES: No known drug allergies. PAST MEDICAL HISTORY: Significant for: 1. 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 This confirmed a [id number] mutation. This is a gain of function mutation which results in 20-30% increase of plasma prothrombin gene product. This translates in a 2-3 time increased risk of DVT formation. The patient presented with a right lower extremity DVT back in 2013 and remains on lifelong anticoagulation. 2. Sweet syndrome diagnosed at the [facility] Department of Dermatology in 2001 under the care of Dr. Rivera and Dr. Israel. The patient had undergone approximately two bone marrow biopsies with no evidence of a primary hematological disorder. 3. 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 4. Diabetes. 5. 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 SOCIAL HISTORY: No significant alcohol or tobacco use. PHYSICAL EXAMINATION: Vital signs today reporting a weight on February 20, 2016 at 88.2 kg, blood pressure was 118/66, temperature 37, pulse is 75, a respiratory rate of 20, and he is saturating at 94% on 1.5 L of O2. He is A and O x3. In good spirits today sitting at the edge of the bed. Lower extremity skin showing chronic dark discoloration from resolved lesions. No significant bruising or bleeding was seen. No petechia noted. Additional imaging studies included CT of the chest without contrast on February 22, 2016 which reported moderate bilateral atypical pneumonia. Review of the patient's peripheral blood from February 23, 2016 showing a mild lymphocytosis. Granulocytes were left shifted with bandemia noted but no toxic granulation seen. No early precursors or blast cells were seen. Red cells were without significant schistocytes, maybe 1 seen per six high-power wilkinson. Occasional red cell was seen. Platelets were numerous and not clumped. ASSESSMENT AND PLAN: The patient is a very pleasant 76-year-old male presenting with mild pancytopenia in the setting of acute influenza A. pneumonia. The patient's clinical picture does not fit the diagnosis of TTP, HUS, HIT. Peripheral smear showing no evidence of schistocytes. Kidney function test normal. RECOMMENDATIONS: For the patient at this time are to continue supportive care. Blood transfusion only if the patient becomes hemodynamically in stable or his hemoglobin drops below 7. Would recommend sending off a D-dimer and a PTT as well as a PT for workup of DIC which again is unlikely in the absence of schistocytes. Re-evaluation of his pancytopenia for primary hematological disorders would be appropriate once he is recovered from his acute influenza A pneumonia. I will continue to watch the patient on a p.r.n. basis at this time. Please call with any questions or concerns. I would like to thank Dr. Roldan for the kind referral. I will be at [facility] on February 25, 2016. My cell phone # is [phone].
[2016-02-24] MEDS: predniSONE 1 mg Tablet PO ONE ×2 (13:15→14:13)
[2016-02-24] MEDS ORDERED: predniSONE 10 mg Tablet PO ONE ×2 (13:15→14:35)
--- NOTE | 2016-02-24 13:40 | PCM.PNMED ---
Subjective Date of Service Feb 24, 2016 Subjective No overnight events. Patient sitting up in bed conversing with "Krissy", smiling. Patient states he is feeling much better, does not remember much of what has happened. Endorses wet cough and feeling a bit cold. Denies CP, SOB, or fevers. Exam Vital Signs Vital Sign - Last Date Time Temp Pulse Resp B/P Pulse Ox O2 Delivery O2 Flow Rate FiO2 02/24/16 07:46 67 18 98 Nasal Cannula 2.00 02/24/16 05:54 36.6 137/64 Intake and Output 02/23/16 02/23/16 02/24/16 Cumulative From/Thru 15:00 23:00 07:00 02/17/16 08:58 - 02/24/16 06:39 Intake Total 1600 ml 1145 ml 38268 ml Output Total 3 ml 4728 ml Balance 1597 ml 1145 ml 50516 ml Intake Oral 250 ml 6635 ml IV Total 1350 ml 1145 ml 8430 ml Output Urine Total 3 ml 4728 ml # Voids 17 # Bowel Movements 0 1 Exam General: AAOx3, smiling and speaking in full sentences HEENT: EOMI. Anicteric sclerae, Moist Mucous Membranes Neck: Neck supple with full ROM Chest & Lungs: Bibasilar crackles, otherwise much improved Cardiovascular: RRR, No Murmurs/Rubs/Gallops Abdomen: Soft, obese, Non-tender, Non-distended, No masses, Normoactive bowel tones, Extremities: Multiple healing ulcerations present on bilateral lower extremities, no open lesions identified. No cyanosis/clubbing/edema bilaterally Neurological: alert and oriented. normal mood and affect IVs and Medications Medications Reviewed: Medications were reviewed in detail Lab and Diagnostics Result Diagram: 02/24/1662402/24/16624 X-Rays, CTs and MRIs X-RAY CHEST, TWO VIEWS IMPRESSION: Marked tortuosity of the thoracic aorta unchanged from prior studies. No acute cardiopulmonary findings. Dictated by: Roseanne Whipple M.D. on 02/17/2016 at 12:07 Approved by: Roseanne Whipple M.D. on 02/17/2016 at 12:07 MRI Brain IMPRESSION: 1. No acute intracranial disease process. 2. Mild, diffuse volume loss. 3. Eahf-wa-ndhbzggy periventricular, subcortical and pontine white matter chronic microvascular ischemic changes. 4. Mild bilateral maxillary sinus and ethmoid air cell mucosal thickening. Please correlate with clinical data. Dictated by: Melissa Mazariegos MD, PhD on 02/17/2016 at 19:46 Approved by: Melissa Mazariegos MD, PhD on 02/17/2016 at 19:46 Date of Service: 02/20/16 0919 X-RAY CHEST ONE VIEW ([id number]) IMPRESSION: Mildly reduced inspiratory volume, chronically mildly elevated right hemidiaphragm. Mild bibasilar atelectasis. A small degree of left lower lung pneumonia could be superimposed. Dictated by: Cory Lunsford M.D. on 02/20/2016 at 9:56 Assessment & Plan Patient is a 76 y.o. M with medical history of sweets syndrome, DVT anticoagulated with warfarin, adrenal insufficiency, chronic dyspnea, chronic steroid use, osteopenia, hyperthyroidism. Patient transferred from [facility] for treatment of worsening shortness of breath, positive influenza A, post ground level fall on warfarin. Sepsis, not present on admission. Resolved. - Temp 38.0, HR 102, RR 22, hypertensive however on 02/20/16 - Chest x-ray and repeat unrevealing, procalcitonin trending down to 0.16 - CXR 02/19 showed probable small left lower lobe pneumonia, no leukocytosis with procal decreasing - CT chest showed atypical pneumonia, started on Zosyn, Vanc - Appreciate ID consult with time and expertise - Recent decompensation maybe attributable to steroid taper, responded well to steroid boost Viral URI, present on admission, active - Positive Influenza A, present on admission, Improving - Tamiflu 75 mg twice a day started on 02/17/2016, now complete - Unlikely to be ARDS based on CXR and labs - DuoNEB Q4 Q4HWA and albuterol prn while in hospital - Keep oxygen above 92% - Low threshold to test for PCP due to patient's immunosuppressed state Acute on chronic sinusitis, present on admission, active - MRI brain shows thickening of maxillary sinuses, likely related to viral URI, possible bacterial - Covered with Zosyn Sweets Syndrome, present on admission, chronic, stable - Possible fever spike is due to neutrophilic activities. - Patient followed by Helicopter Repairer Dr. Vandana Hdz at [facility] tel: , fax: [phone], MR results sent - Per , patient has been on steroids for past 6 years, does not tolerating even the smallest taper well - 100mg IV Hydrocortisone given once, followed by 50mg Q8H - Dr. Hdz consulted and recommends IV taper then switch to PO prednisone 20mg - Prednisone increased to 20mg daily to tie over from IV Hydrocortisone - Patient to be prophylactically treated with Bactrim for Prednisone dose over 20mg Chronic thrombocytopenia, pancytopenia, present on admission, worsening - per , patient has been worked up at [facility] for this and has not been able to find any etiology - unclear low platelets is part atypical symptomatology of Sweet syndrome - Blood smear with path review pending - Appreciate hematology consult with time and expertise Continue supportive care Transfuse if patient becomes hemodynamically unstable or hemoglobin below 7 D-dimer and PT/PTT negative, no schistocytes, DIC highly unlikely Further work up for primary hematological disorders as outpatient - Transfusion held due to patient being hemodynamically stable Ground level fall, present on admission, resolved - Some concern for intracranial bleed in the setting of warfarin use (INR 1.7 on 02/17/16) and thrombocytopenia. - Brain MRI were negative however. 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 Improving. 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 Referral made to [facility] by [facility]IEYRA for RN,PT,OT, and MINE WIRER, VTE Prophylaxis: SCDs VTE Mechanical Devices: Venous Foot Pump Resuscitation Status: CPR: Attempt Resuscitation Time spent 35minutes Attending Statement I have seen and evaluated patient at bedside in addition to directly supervising care provided by resident physician. I agree with above documentation. Miguelina Day DO Feb 24, 2016 09:30 Oziel Rey DO Feb 25, 2016 08:32
--- NOTE | 2016-02-24 14:29 | NUR ---
Social Work: Readiness for d/c Data: Pt is on day 7 of hospitalization. EMR reviewed. Pt discussed in rounds. states that pt is likely to d/c tomorrow. BRASSWIND INSTRUMENT REPAIRER received a phone call from pt's spouse who requested BRASSWIND INSTRUMENT REPAIRER meet with her regarding d/c plan. BRASSWIND INSTRUMENT REPAIRER met with her and pt at bedside. BRASSWIND INSTRUMENT REPAIRER let pt's spouse know that pt is set up with [facility] for d/c and how that process works. She inquired about any medical equipment pt might need. BRASSWIND INSTRUMENT REPAIRER suggested she speak with pt's doctor about this matter and if she has any other questions to let BRASSWIND INSTRUMENT REPAIRER know. No further questions by pt or family. BRASSWIND INSTRUMENT REPAIRER will continue to follow. Assessment: Pt who is independent at baseline. Plan: Pt will d/c home via POV with [facility] when medically stable, likely tomorrow. No further questions by pt or family. BRASSWIND INSTRUMENT REPAIRER will continue to follow. SASKIA Troy
[2016-02-24] MEDS ORDERED: predniSONE 1 mg Tablet PO ONE (14:40)
--- NOTE | 2016-02-24 14:59 | PCM.PHAPRO ---
Progress Ground level fall Shortness of breath WARFARIN DOSING PER PHARMACY Indication: Hx DVT, prothrombin 2 gene mutation INR goal: 2-3 Home dose: warfarin 2.5 mg daily DI: prednisone, zosyn Additional Anticoagulation: N/A Antiplatelet tx: N/A Lab Date Result Dose INR 02/19/16 1.20 2 mg INR 02/20/16 1.27 3 mg INR 02/21/16 1.58 1 mg INR 02/22/16 1.65 3 MG INR 02/23/16 1.76 3 mg INR 02/24/16 2.01 2.5 mg Note: - Plts have been trending down. Pt has hx of chronic low plts Plan: - Will give one dose of warfarin 2.5 mg PO tonight - Pharmacy will continue to monitor INR/CBC/signs and symptoms of bleeding Trixie Carl PharmD Feb 24, 2016 14:59
--- NOTE | 2016-02-24 15:33 | PROG NOTE ---
[address] [address] PROGRESS NOTE PATIENT: ALEXANDER MAGAÑA : 1940 MR#: [id number] ADMIT: 02/17/2016 JOB ID: [id number] DATE: 02/24/2016 INFECTIOUS DISEASE FOLLOWUP NOTE: REASON FOR FOLLOWUP: Complex patient with Sweet syndrome, influenza, and altered mental status, with possible pulmonary infection. INTERVAL HISTORY: Recall that yesterday the patient was quite obtunded and we discussed the possibility of giving him some IV steroids to see if he might be hypoadrenal. This was done and the patient this morning was awake, alert, and fully interactive. He subsequently drifted a little bit and is now more lethargic than he was this morning but the prevailing thought at this point among the members of the team as well as the infectious disease functional consultant team is that he was seriously hypoadrenal due to a rapid taper prednisone and he is now much improved with sufficient steroid replacement. The patient for his part though tells us this afternoon that he has a headache, which is new, as well as some shortness of breath. He is lying in bed on his side and otherwise denies complaints including fevers, chills, or GI symptoms. This case was discussed with his and son, who were in the room. PHYSICAL EXAMINATION: Reveals an afebrile gentleman, temperature 36.6. He has been afebrile for 24 hours but did spike to 38.2 yesterday. Pulse 83, respiratory rate 24, blood pressure 139/67, he is saturating well on 0.5 L. The patient is lethargic, but actually oriented x3 when roused. Eyes: Without change. Lungs: With a few crackles at the bases but fairly clear. Abdomen: Negative. No new skin rash. Recall that he has the healed dermatophytic lesions on his legs. Review of records from outside facility shows that these were tinea and were treated with a long course of itraconazole with apparent cure. LABORATORIES: Include white count 2800, hematocrit 20, differential white count basically normal. Creatinine 0.72. White cells negative. Fungitell negative. Micro studies include negative blood cultures, positive nasal MRSA screen, positive influenza which has already been treated, a strep culture of the throat that was negative, and a sputum culture which showed normal ashok. IMAGING: Our most recent imaging includes a chest CT, which we reviewed a couple of times now, and shows some infiltrates at the bases bilaterally which could be atelectasis or pneumonia. IMPRESSION: This continues to be a very confusing case. It is now apparent that in addition to his other problems the patient has been relatively hypoadrenal the last few days and he has now rebounded with the addition of steroids. Whether or not he has significant underlying infection is unclear. His influenza has been adequately treated. There is no evidence at this point that he has meningoencephalitis as he is quite awake and alert at times. As to how much pneumonia he might have, that remains a bit debatable. 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 RECOMMENDATIONS: 1. I would continue briefly at least with the Zosyn. 2. I would also continue with the vanc while we attempt to sort out what is going on with this very confusing patient. 3. We discussed this case with the team and they plan to institute a daily dose of prednisone 20 mg a day and see how his mental status does with that, and I wholeheartedly agree with that plan.
--- NOTE | 2016-02-24 16:48 | NUR ---
prednisone dose family wants the importance of the prednisone and the schedule to be adhered it is very important to the treatment of Sweet Syndrome.
[2016-02-24] MEDS: Mupirocin 2% 22 Gm Ointment TOPICAL SCH (20:03)
[2016-02-24] MEDS: Benzocaine-Menthol Lozenge 2/Pkg PO PRN (20:10)
--- NOTE | 2016-02-24 20:30 | NUR ---
Zosyn Scheduled dose at 1630 Zosyn Scheduled dose at 1630 not documented,dose currently running from administration of previous shift. Addendum: 02/24/16 at 2223 by MAGGIE REILLY RN Zosyn administered from previous shift just completed at 2222.
[2016-02-25] VITALS (12 sets, daily range): BP systolic 125–163; BP diastolic 62–78; PULSE 65–78; RESP 18–26; O2SAT 92–100
[2016-02-25] MEDS: Piperacillin-Tazo 3.375 Gm Inj 3.375 GM in Dextrose 5% Minibag Plus 50 ML IV SCH ×3 (01:16→18:50)
[2016-02-25] MEDS ORDERED: Vancomycin Serum Trough XX ONE (03:30)
[2016-02-25] MEDS: Vancomycin Inj 1,000 MG in IV Premix 1 EACH IV SCH (05:26)
[2016-02-25] MEDS: Albuterol-Ipratropium 3 mL Inhalation Solution NEB SCH ×5 (06:00→21:34)
[2016-02-25 06:29] LABS: Mean Corpuscular Hemoglobin 35.2 pg (27.0-35.0); Mean Corpuscular Volume 105.1 fL (81-100); Platelet Count 60 bil/L (150-400)
--- NOTE | 2016-02-25 06:41 | NUR ---
Noneventful night Pt c/o moderate headache at late evening, Tylenol given, headache relieved. Pt slightly drowsy, but orientedx3,forgetful,does not use call light when OOB despite instructed to do so,calm,sleeping most of night except OOB to void. VSS, afebrile, SOB with activities. Peculiar alarm on,no fall.
[2016-02-25 06:44] LABS: INR 2.31 ratio
[2016-02-25] MEDS: Insulin LISPRO Medium-Dose Scale SUBQ SCH ×4 (07:30→20:48)
[2016-02-25 08:07] LABS: BASOPHILS % (AUTO) 2 % (0-3); EOSINOPHILS % (AUTO) 1 % (0-5); MONOCYTES % (AUTO) 10 % (4-12); NEUTROPHILS % (AUTO) 48 % (40-74)
[2016-02-25] MEDS ORDERED: Chlorhexidine 4% 120 mL Topical Solution TOPICAL ONE (08:30)
[2016-02-25] MEDS: Vancomycin Dose per Pharmacist XX SCH (08:30)
--- NOTE | 2016-02-25 08:46 | NUR ---
Transfer to [facility] Patient found hypoxic-SPO2in 80's, NC patient had removed nasal canula and was dusky in color. ABG's drawn, Lazix IV push given. Patient changed to rebreather mask at 15 ltr. Then transferred to [facility]. Report given to Inge Zamora. Addendum: 02/25/16 at 0849 by TULIO RDZ RN Disregard note-wrong pt.
--- NOTE | 2016-02-25 08:49 | NUR ---
Disregard prior note, wrong pt.
[2016-02-25] MEDS: Mupirocin 2% 22 Gm Ointment TOPICAL SCH ×2 (08:59→20:48)
[2016-02-25] MEDS: predniSONE 20 mg Tablet PO SCH (08:59)
[2016-02-25] MEDS ORDERED: Potassium Chloride 20 mEq SR Tablet PO ONE (11:40)
[2016-02-25] MEDS: 0.9% Sodium Chloride 1,000 ML IV SCH (12:22)
--- NOTE | 2016-02-25 14:42 | PCM.PHAPRO ---
Progress Ground level fall Shortness of breath VANCOMYCIN DOSING PER PHARMACY MRSA Screen + for MRSA Indication: Possible MRSA pulmonary infxn Trough goal: 15-20 Labs: SCr: 0.81 WBC: 3.5 Trough on 02/25/16 @0430 was 9.9 Other abx: Zosyn MRSA screen swab is (+) for MRSA Plan - With low trough will increase dose to vancomycin 1250 mg IV q12H scheduled to start at 1700 tonight - Will order trough before 4th dose on 02/26/16 @1400 - Pharmacy will continue to follow labs as appropriate Trixie Carl PharmD Feb 25, 2016 14:42
--- NOTE | 2016-02-25 16:17 | NUR ---
Activity/Lung sounds Patient reporting he is feeling "better, I am still just so tired". Patient up to bathroom, stand by assist with front wheeled walker. Rt middle/lower lobe continues to have expiratory wheezes and rhonchi-improving.
--- NOTE | 2016-02-25 16:29 | PROG NOTE ---
[address] [address] PROGRESS NOTE PATIENT: ALEXANDER MAGAÑA : 1940 MR#: [id number] ADMIT: 02/17/2016 JOB ID: [id number] DATE: 02/25/2016 INFECTIOUS DISEASE FOLLOW UP NOTE: REASON FOR FOLLOWUP: Influenza in a patient with underlying adrenal insufficiency and Sweet syndrome who is a chronic steroid dependent. INTERVAL HISTORY: Overnight, the patient's steroid dose was increased to 20 mg a day of prednisone which is above his usual baseline level of 14. Recall that he seemed to have diminished mental status when his prednisone was rapidly tapered. This afternoon the patient is completely awake, coherent and the best he has been through this admission. He states he has an occasional productive cough with essentially no shortness of breath. Overall he feels a bit weak but he is gaining strength. No fever, no chills. PHYSICAL EXAMINATION: Reveals an afebrile gentleman, temperature was 38.2 two days ago. Since then, afebrile now 36.5, pulse 76, respiratory rate 22, blood pressure 125/66. He is saturating well on half a liter. He is in no distress at all and completely lucid today. Oral cavity negative. Lungs with a bit of wheezing bilaterally, but not impressive. Cardiac tones regular rate and rhythm. Abdomen no change. Skin still with a mary beth complexion but better than before or less than before anyway. LABORATORIES: Include white count 3500, hematocrit 20, platelet count 60,000, neutrophils 48%, lymphocytes 36%, myelocytes 3%. Witt C crypto antigen is still pending but Fungitell and galactomannan have come back negative. No new micro is available, but his sputum from the 16th was basically normal ashok. Recall that he was colonized with MRSA and he had evidence of influenza on admission. IMAGING: Includes a CT of the chest we looked at yesterday which shows some bibasilar changes. IMPRESSION: This patient has rebounded smartly with the increase in his prednisone. At this point, he really looks good from an overall perspective. His flu has been adequately treated and there is no evidence for meningoencephalitis. With respect to how much pulmonary infection remains, that is the uncertainty in this case. He is MRSA colonized and we started him on vanco a day or so ago out of an abundance of caution regarding the possibility of MRSA pneumonia, but I think that is less and less likely. He has also been treated with several days of Zosyn. RECOMMENDATIONS: 1. I would continue the Zosyn through tomorrow, February 25, and then stop. That will be five days of therapy and I really do not have any strong sense we are treating anything. 2. Will continue the patient on vanco at least overnight while we repeat a sputum Gram stain and culture and a procalcitonin. If the sputum Gram stain and culture shows no evidence of MRSA and especially if the procalcitonin is below 0.5, I would just go ahead and stop the vanco as well. 3. I would certainly keep the patient on prednisone 20 for awhile before starting any sort of taper.
--- NOTE | 2016-02-25 19:05 | PCM.PNMED ---
Subjective Date of Service Feb 25, 2016 Subjective 24H events: Patient's mental status declined after IV steroids wearing off. Patient states he feels overall "just exhausted". Denies CP, SOB, fevers or chills. No other complaints. Exam Vital Signs Vital Sign - Last Date Time Temp Pulse Resp B/P Pulse Ox O2 Delivery O2 Flow Rate FiO2 02/25/16 10:39 Supplement Oxygen 02/25/16 08:43 65 24 99 2.00 02/25/16 05:21 36.9 163/76 Intake and Output 02/24/16 02/24/16 02/25/16 Cumulative From/Thru 15:00 23:00 07:00 02/17/16 08:58 - 02/25/16 06:47 Intake Total 493 ml 1641 ml 1004 ml 55246 ml Output Total 800 ml 500 ml 400 ml 6428 ml Balance -307 ml 1141 ml 604 ml 85436 ml Intake Oral 300 ml 750 ml 0 ml 7685 ml IV Total 193 ml 891 ml 1004 ml 51781 ml Output Urine Total 800 ml 500 ml 400 ml 6428 ml # Voids 3 20 # Bowel Movements 0 0 1 Exam General: AAOx3, appears lethargic HEENT: EOMI. Anicteric sclerae, Moist Mucous Membranes Neck: Neck supple with full ROM Chest & Lungs: Bibasilar crackles, with expiratory wheezes Cardiovascular: RRR, No Murmurs/Rubs/Gallops Abdomen: Soft, obese, Non-tender, Non-distended, No masses, Normoactive bowel tones, Extremities: Multiple healing ulcerations present on bilateral lower extremities, no open lesions identified. No cyanosis/clubbing/edema bilaterally Neurological: alert and oriented, no focal deficits IVs and Medications Medications Reviewed: Medications were reviewed in detail Lab and Diagnostics Result Diagram: 02/25/16 0545 02/25/16 0545 X-Rays, CTs and MRIs X-RAY CHEST, TWO VIEWS IMPRESSION: Marked tortuosity of the thoracic aorta unchanged from prior studies. No acute cardiopulmonary findings. Dictated by: Roseanne Whipple M.D. on 02/17/2016 at 12:07 Approved by: Roseanne Whipple M.D. on 02/17/2016 at 12:07 MRI Brain IMPRESSION: 1. No acute intracranial disease process. 2. Mild, diffuse volume loss. 3. Sshn-tj-cromnyba periventricular, subcortical and pontine white matter chronic microvascular ischemic changes. 4. Mild bilateral maxillary sinus and ethmoid air cell mucosal thickening. Please correlate with clinical data. Dictated by: Melissa Mazariegos MD, PhD on 02/17/2016 at 19:46 Approved by: Melissa Mazariegos MD, PhD on 02/17/2016 at 19:46 Date of Service: 02/20/16 0919 X-RAY CHEST ONE VIEW ([id number]) IMPRESSION: Mildly reduced inspiratory volume, chronically mildly elevated right hemidiaphragm. Mild bibasilar atelectasis. A small degree of left lower lung pneumonia could be superimposed. Dictated by: Cory Lunsford M.D. on 02/20/2016 at 9:56 Assessment & Plan Patient is a 76 y.o. M with medical history of sweets syndrome, DVT anticoagulated with warfarin, adrenal insufficiency, chronic dyspnea, chronic steroid use, osteopenia, hyperthyroidism. Patient transferred from [facility] for treatment of worsening shortness of breath, positive influenza A, post ground level fall on warfarin. Sepsis, not present on admission. Resolved. - Temp 38.0, HR 102, RR 22, hypertensive however on 02/20/16 - Chest x-ray and repeat unrevealing, procalcitonin trending down to 0.16 - CXR 02/19 showed probable small left lower lobe pneumonia, no leukocytosis with procal decreasing - CT chest showed atypical pneumonia, started on Zosyn, Vanc - Appreciate ID consult with time and expertise - Recent decompensation maybe attributable to steroid taper, responded well to steroid boost Viral URI, present on admission, active - Positive Influenza A, present on admission, Improving - Tamiflu 75 mg twice a day started on 02/17/2016, now complete - Unlikely to be ARDS based on CXR and labs - DuoNEB Q4 Q4HWA and albuterol prn while in hospital - Keep oxygen above 92% - Low threshold to test for PCP due to patient's immunosuppressed state Acute on chronic sinusitis, present on admission, active - MRI brain shows thickening of maxillary sinuses, likely related to viral URI, possible bacterial - Covered with Zosyn Sweets Syndrome, present on admission, chronic, stable - Possible fever spike is due to neutrophilic activities. - Patient followed by Pasteuriser Operator Dr. Vandana Hdz at [facility] tel: , fax: [phone], MR results sent - Per , patient has been on steroids for past 6 years, does not tolerating even the smallest taper well - 100mg IV Hydrocortisone given once, followed by 50mg Q8H - Dr. Hdz consulted and recommends IV taper then switch to PO prednisone 20mg - Prednisone increased to 20mg daily to tie over from IV Hydrocortisone - Continue prednisone 20mg for the duration of this hospitalization, do not try to taper - Patient to be prophylactically treated with Bactrim for Prednisone dose over 20mg MRSA swab positive - Treating with Bactroban and Hibaclens to prevent further infections due to patient immunocompromised Chronic thrombocytopenia, pancytopenia, present on admission, worsening - per , patient has been worked up at [facility] for this and has not been able to find any etiology - unclear low platelets is part atypical symptomatology of Sweet syndrome - Blood smear with path review pending - Appreciate hematology consult with time and expertise Continue supportive care Transfuse if patient becomes hemodynamically unstable or hemoglobin below 7 D-dimer and PT/PTT negative, no schistocytes, DIC highly unlikely Further work up for primary hematological disorders as outpatient - Transfusion held due to patient being hemodynamically stable Ground level fall, present on admission, resolved - Some concern for intracranial bleed in the setting of warfarin use (INR 1.7 on 02/17/16) and thrombocytopenia. - Brain MRI were negative however. 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 Improving. 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 Referral made to [facility] by [facility] for RN,PT,OT, and HOP TRAINER, VTE Prophylaxis: SCDs VTE Mechanical Devices: Intermittant Pneumatic CD, Venous Foot Pump Resuscitation Status: CPR: Attempt Resuscitation Time spent 30 Attending Statement I have seen and evaluated patient at bedside in addition to directly supervising care provided by resident physician. I agree with above documentation. Pt finally demonstrating clinical improvements, likely secondary to corrections made with steroid dosing to adjust for stress response with infection. Miguelina Day DO Feb 25, 2016 10:52 Oziel Rey DO Feb 26, 2016 12:08
[2016-02-26] VITALS (11 sets, daily range): BP systolic 134–153; BP diastolic 62–81; PULSE 60–87; RESP 14–24; O2SAT 93–99
[2016-02-26] MEDS: Piperacillin-Tazo 3.375 Gm Inj 3.375 GM in Dextrose 5% Minibag Plus 50 ML IV SCH ×3 (01:36→17:29)
[2016-02-26] MEDS: 0.9% Sodium Chloride 1,000 ML IV SCH ×2 (04:29→06:30)
--- NOTE | 2016-02-26 05:40 | NUR ---
Respiration Pt states SOB improved,denies SOB at bedrest,but appears significant SOB when stand up at bedside for voiding. Occasional nonproductive cough, pt aware sputum sample needed if any. Moderately decreased lung sounds bilaterally, coarse posteriorly, no wheezes or crackles noted. SPO2 94-100% on O2 2l per nc, RADIO INTERFERENCE SUPERVISOR monitoring. Pt appears mentally more clear and more energy compared with yesterday, alert and orientedx3. VSS, afebrile. Acapella encouraged 10times/hr while awake. NEB by RT.
[2016-02-26 07:03] LABS: INR 2.5 ratio
[2016-02-26] MEDS: Insulin LISPRO Medium-Dose Scale SUBQ SCH ×4 (07:30→21:46)
[2016-02-26] MEDS: predniSONE 20 mg Tablet PO SCH (08:28)
[2016-02-26] MEDS: Mupirocin 2% 22 Gm Ointment TOPICAL SCH ×2 (08:32→21:42)
[2016-02-26] MEDS: Vancomycin Dose per Pharmacist XX SCH (08:59)
[2016-02-26] MEDS ORDERED: KCl 40 mEq/D5W 500 mL 40 MEQ in IV Premix 1 EACH IV ONE (09:15)
--- NOTE | 2016-02-26 12:21 | PCM.PNMED ---
Subjective Date of Service Feb 26, 2016 Subjective No overnight event. Patient reports of some improvement in his level of energy, still struggling. Endorsed mild headache onset this morning. Denies fevers or chills. Otherwise no concerns or complaints. Exam Vital Signs Vital Sign - Last Date Time Temp Pulse Resp B/P Pulse Ox O2 Delivery O2 Flow Rate FiO2 02/26/16 10:13 60 02/26/16 10:01 36.7 22 143/62 99 Nasal Cannula 2.00 Intake and Output 02/25/16 02/25/16 02/26/16 Cumulative From/Thru 15:00 23:00 07:00 02/17/16 08:58 - 02/26/16 06:08 Intake Total 365 ml 1159 ml 913 ml 73402 ml Output Total 650 ml 950 ml 8028 ml Balance 365 ml 509 ml -37 ml 64789 ml Intake Oral 500 ml 200 ml 8385 ml IV Total 365 ml 659 ml 713 ml 27582 ml Output Urine Total 650 ml 950 ml 8028 ml # Voids 20 # Bowel Movements 1 0 2 Exam General: AAOx3, lethargy appears to have moderately improved HEENT: EOMI. Anicteric sclerae, Moist Mucous Membranes Neck: Neck supple with full ROM Chest & Lungs: CTAB Cardiovascular: RRR, No Murmurs/Rubs/Gallops Abdomen: Soft, obese, Non-tender, Non-distended, No masses, Normoactive bowel tones, Extremities: Multiple healing ulcerations present on bilateral lower extremities, no open lesions identified. No cyanosis/clubbing/edema bilaterally Neurological: alert and oriented, no focal deficits IVs and Medications Medications Reviewed: Medications were reviewed in detail Lab and Diagnostics Result Diagram: 02/25/16 0545 02/26/16 0600 X-Rays, CTs and MRIs X-RAY CHEST, TWO VIEWS IMPRESSION: Marked tortuosity of the thoracic aorta unchanged from prior studies. No acute cardiopulmonary findings. Dictated by: Roseanne Whipple M.D. on 02/17/2016 at 12:07 Approved by: Roseanne Whipple M.D. on 02/17/2016 at 12:07 MRI Brain IMPRESSION: 1. No acute intracranial disease process. 2. Mild, diffuse volume loss. 3. Vawl-sz-zugerait periventricular, subcortical and pontine white matter chronic microvascular ischemic changes. 4. Mild bilateral maxillary sinus and ethmoid air cell mucosal thickening. Please correlate with clinical data. Dictated by: Melissa Mazariegos MD, PhD on 02/17/2016 at 19:46 Approved by: Melissa Mazariegos MD, PhD on 02/17/2016 at 19:46 Date of Service: 02/20/16 0919 X-RAY CHEST ONE VIEW ([id number]) IMPRESSION: Mildly reduced inspiratory volume, chronically mildly elevated right hemidiaphragm. Mild bibasilar atelectasis. A small degree of left lower lung pneumonia could be superimposed. Dictated by: Cory Lunsford M.D. on 02/20/2016 at 9:56 Assessment & Plan Patient is a 76 y.o. M with medical history of sweets syndrome, DVT anticoagulated with warfarin, adrenal insufficiency, chronic dyspnea, chronic steroid use, osteopenia, hyperthyroidism. Patient transferred from [facility] for treatment of worsening shortness of breath, positive influenza A, post ground level fall on warfarin. Sepsis, not present on admission. Resolved. - Temp 38.0, HR 102, RR 22, hypertensive however on 02/20/16 - Chest x-ray and repeat unrevealing, procalcitonin trending down to 0.16 - CXR 02/19 showed probable small left lower lobe pneumonia, no leukocytosis with procal decreasing - CT chest showed atypical pneumonia, started on Zosyn, Vanc - Appreciate ID consult with time and expertise Zosyn to be stopped after today's dose - Recent decompensation maybe attributable to steroid taper, responded well to steroid boost Viral URI, present on admission, active - Positive Influenza A, present on admission, Improving - Tamiflu 75 mg twice a day started on 02/17/2016, now complete - Unlikely to be ARDS based on CXR and labs - DuoNEB Q4 Q4HWA and albuterol prn while in hospital - Keep oxygen above 92% - Low threshold to test for PCP due to patient's immunosuppressed state Hypokalemia, not present on admission. active - supplementation given, recheck this afternoon Sweets Syndrome, present on admission, chronic, stable - Possible fever spike is due to neutrophilic activities. - Patient followed by Public Relations Studies Director Dr. Vandana Hdz at [facility] tel: , fax: [phone], MR results sent - Per , patient has been on steroids for past 6 years, does not tolerating even the smallest taper well - 100mg IV Hydrocortisone given once, followed by 50mg Q8H - Dr. Hdz consulted and recommends IV taper then switch to PO prednisone 20mg - Prednisone increased to 20mg daily to tie over from IV Hydrocortisone - Continue prednisone 20mg for the duration of this hospitalization, do not try to taper - Patient to be prophylactically treated with Bactrim for Prednisone dose over 20mg MRSA swab positive - Treating with Bactroban and Hibaclens to prevent further infections due to patient immunocompromised Acute on chronic sinusitis, present on admission, stable - MRI brain shows thickening of maxillary sinuses, likely related to viral URI, possible bacterial - Covered with Zosyn Chronic thrombocytopenia, pancytopenia, present on admission, worsening - per , patient has been worked up at [facility] for this and has not been able to find any etiology - unclear low platelets is part atypical symptomatology of Sweet syndrome - Blood smear with path review pending - Appreciate hematology consult with time and expertise Continue supportive care Transfuse if patient becomes hemodynamically unstable or hemoglobin below 7 D-dimer and PT/PTT negative, no schistocytes, DIC highly unlikely Further work up for primary hematological disorders as outpatient - Transfusion held due to patient being hemodynamically stable Ground level fall, present on admission, resolved - Some concern for intracranial bleed in the setting of warfarin use (INR 1.7 on 02/17/16) and thrombocytopenia. - Brain MRI were negative however. 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 Improving. 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 Referral made to [facility] by [facility] for RN,PT,OT, and MEAT GRADING MACHINE OPERATOR, VTE Prophylaxis: SCDs VTE Mechanical Devices: Intermittant Pneumatic CD, Venous Foot Pump Resuscitation Status: CPR: Attempt Resuscitation Time spent 30 minutes Attending Statement I have seen and evaluated patient at bedside and directly supervised care provided by resident physician. I agree with above documentation. Miguelina Day DO Feb 26, 2016 12:19 Oziel Rey DO Feb 26, 2016 15:15
[2016-02-26] MEDS ORDERED: Vancomycin Serum Trough XX ONE (16:00)
--- NOTE | 2016-02-26 17:35 | NUR ---
RN agrees with SN charting
[2016-02-26] MEDS: Albuterol-Ipratropium 3 mL Inhalation Solution NEB SCH (19:28)
[2016-02-27] VITALS (9 sets, daily range): BP systolic 129–159; BP diastolic 64–81; PULSE 70–84; RESP 16–24; O2SAT 95–98
[2016-02-27] MEDS: Albuterol-Ipratropium 3 mL Inhalation Solution NEB SCH (06:00)
[2016-02-27 06:06] LABS: Mean Corpuscular Hemoglobin 34.9 pg (27.0-35.0); Mean Corpuscular Volume 106.7 fL (81-100); Platelet Count 73 bil/L (150-400)
[2016-02-27 06:29] LABS: Magnesium 1.8 mg/dL (1.6-2.6)
[2016-02-27 06:36] LABS: INR 2.47 ratio
--- NOTE | 2016-02-27 06:46 | NUR ---
Uneventful Night Pt states SOB "much better", denies SOB at rest, still very dyspnea when stand up at bedside for voiding,scattered wheezes at left lung mostly, moderately decreased lung sounds, right side worse. NEB administered by RT. Intermittently cough, scan white sputum, sample sent. SOB stable. SPO2 93-97% on O2 2l per nc. HOMICIDE DETECTIVE monitoring. Denies any pain/N/V/fever/chills. VSS. Alert and orientedx3,but impulsive, forgetful, get OOB quickly without using call light despite instructed repeatedly. [place] alarm on. No fall.
[2016-02-27] MEDS: Insulin LISPRO Medium-Dose Scale SUBQ SCH ×4 (07:30→21:49)
[2016-02-27 07:36] LABS: BASOPHILS % (AUTO) 1 % (0-3); EOSINOPHILS % (AUTO) 1 % (0-5); MONOCYTES % (AUTO) 6 % (4-12); NEUTROPHILS % (AUTO) 60 % (40-74)
[2016-02-27] MEDS: Mupirocin 2% 22 Gm Ointment TOPICAL SCH ×2 (08:41→21:42)
[2016-02-27] MEDS: predniSONE 20 mg Tablet PO SCH (08:48)
--- NOTE | 2016-02-27 09:27 | NUR ---
KYM signed Verbal consent to sign, pt on precautions, at 8:40am. SASKIA Troy
--- NOTE | 2016-02-27 09:28 | NUR ---
Social Work: Continued d/c planning Data: Pt is on day 10 of hospitalization. MANAGER RESOURCE met with pt at bedside to discuss d/c. MANAGER RESOURCE stated pt has been referred to [facility] and pt continues to be agreeable to this. MANAGER RESOURCE will continue to follow. Assessment: Pt who is independent at baseline. Plan: Pt will d/c home via POV when medically stable with [facility] RN/PT/OT/REVENUE STAMPER. MANAGER RESOURCE will continue to follow. SASKIA Troy
[2016-02-27] MEDS ORDERED: Albuterol-Ipratropium 3 mL Inhalation Solution NEB SCH (11:10)
--- NOTE | 2016-02-27 16:10 | NUR ---
Social Work: Readiness for d/c Data: Pt is on day 10 of hospitalization. EMR reviewed, pt discussed in rounds. PT last saw pt on 02/18 and states he is safe to d/c home. EAR NOSE THROAT PHYSICIAN received a message from pt's who asked if pt would require a hospital bed at d/c. EAR NOSE THROAT PHYSICIAN spoke with pt's RN who states that they are watching pt for falls. EAR NOSE THROAT PHYSICIAN called pt's spouse who states that from her perspective, pt is much weaker than he was a week ago. EAR NOSE THROAT PHYSICIAN states that pt's insurance would very likely not cover the cost of a hospital bed at d/c but that she could daytime caregiver her information on private pay. She declined this and states she would like PT to see pt again and determine what he needs. EAR NOSE THROAT PHYSICIAN called MD to see if another PT evaluation may be appropriate, MD states he will order another evaluation. EAR NOSE THROAT PHYSICIAN will continue to follow. Assessment: Pt who is independent at baseline. Plan: Pt will d/c home via POV with spouse. Pt referred to [facility] for RN/PT/OT/GAS LEAK TESTER, pending PT evaluation on 02/27 and if he requires this or not. EAR NOSE THROAT PHYSICIAN will continue to follow. SASKIA Troy
--- NOTE | 2016-02-27 16:38 | PCM.PNMED ---
Subjective Date of Service Feb 27, 2016 Subjective No overnight events. Patient denies any breathing difficulty. No body aches. No ectopy on telemetry Patient was planned for discharged today, however, K+ continues to be low. Thus , kept for one more night. Exam Vital Signs Vital Sign - Last Date Time Temp Pulse Resp B/P Pulse Ox O2 Delivery O2 Flow Rate FiO2 02/27/16 10:00 36.9 70 22 134/81 97 Nasal Cannula 2.00 Intake and Output 02/26/16 02/26/16 02/27/16 Cumulative From/Thru 15:00 23:00 07:00 02/17/16 08:58 - 02/27/16 06:32 Intake Total 984 ml 771 ml 92451 ml Output Total 1625 ml 9653 ml Balance 984 ml -854 ml 97082 ml Intake Oral 200 ml 8585 ml IV Total 984 ml 571 ml 74957 ml Output Urine Total 1625 ml 9653 ml # Voids 20 # Bowel Movements 1 3 Exam General: comfortable, lying flat in bed, HEENT: EOMI. Anicteric sclerae, Moist Mucous Membranes Neck: Neck supple with full ROM Chest & Lungs: b/l air sound, no crackles, wheezes, or coarse breathing Cardiovascular: RRR, No Murmurs/Rubs/Gallops Abdomen: Soft, obese, Non-tender, Non-distended, No masses, Normoactive bowel tones, Extremities: Multiple healing ulcerations present on bilateral lower extremities, no open lesions identified. No cyanosis/clubbing/edema bilaterally Neurological: alert and oriented, no focal deficits Lab and Diagnostics Result Diagram: 02/27/16 0536 02/27/16 1512 X-Rays, CTs and MRIs X-RAY CHEST, TWO VIEWS IMPRESSION: Marked tortuosity of the thoracic aorta unchanged from prior studies. No acute cardiopulmonary findings. Dictated by: Roseanne Whipple M.D. on 02/17/2016 at 12:07 Approved by: Roseanne Whipple M.D. on 02/17/2016 at 12:07 MRI Brain IMPRESSION: 1. No acute intracranial disease process. 2. Mild, diffuse volume loss. 3. Rmpf-mp-kzqqonhr periventricular, subcortical and pontine white matter chronic microvascular ischemic changes. 4. Mild bilateral maxillary sinus and ethmoid air cell mucosal thickening. Please correlate with clinical data. Dictated by: Melissa Mazariegos MD, PhD on 02/17/2016 at 19:46 Approved by: Melissa Mazariegos MD, PhD on 02/17/2016 at 19:46 Date of Service: 02/20/16 0919 X-RAY CHEST ONE VIEW ([id number]) IMPRESSION: Mildly reduced inspiratory volume, chronically mildly elevated right hemidiaphragm. Mild bibasilar atelectasis. A small degree of left lower lung pneumonia could be superimposed. Dictated by: Cory Lunsford M.D. on 02/20/2016 at 9:56 Assessment & Plan Patient is a 76 y.o. M with medical history of sweets syndrome, DVT anticoagulated with warfarin, adrenal insufficiency, chronic dyspnea, chronic steroid use, osteopenia, hyperthyroidism. Patient transferred from [facility] for treatment of worsening shortness of breath, positive influenza A, post ground level fall on warfarin. His hospitalization protracted hospitalization 2nd to development of adrenal crisis, slowly resolving with pulsed dose steroids and an increase in maintenance prednisone. Sepsis, not present on admission. Resolved. - Temp 38.0, HR 102, RR 22, hypertensive however on 02/20/16 - Chest x-ray and repeat unrevealing, procalcitonin trending down to 0.16 - CXR 02/19 showed probable small left lower lobe pneumonia, no leukocytosis with procal decreasing - CT chest showed atypical pneumonia, started on Zosyn, Vanc - Appreciate ID consult with time and expertise Zosyn to be stopped after today's dose - Recent decompensation maybe attributable to steroid taper, responded well to steroid boost Viral URI, present on admission, active - Positive Influenza A, present on admission, Improving - Tamiflu 75 mg twice a day started on 02/17/2016, now complete - Unlikely to be ARDS based on CXR and labs - DuoNEB Q4 Q4HWA and albuterol prn while in hospital - Keep oxygen above 92% - Low threshold to test for PCP due to patient's immunosuppressed state Hypokalemia, not present on admission. active - Recurrent episodes of K+. Likely low reserve, possibly excess mineralocorticoid. - Urine K+ ordered - AM labs BMP and Mg+2 ordered Sweets Syndrome, present on admission, chronic, stable - Possible fever spike is due to neutrophilic activities. - Patient followed by Roll Handler Dr. Vandana Hdz at [facility] tel: , fax: [phone], MR results sent - Per , patient has been on steroids for past 6 years, does not tolerating even the smallest taper well - 100mg IV Hydrocortisone given once, followed by 50mg Q8H - Dr. Hdz consulted and recommends IV taper then switch to PO prednisone 20mg - Prednisone increased to 20mg daily to tie over from IV Hydrocortisone - Continue prednisone 20mg for the duration of this hospitalization, do not try to taper - Patient to be prophylactically treated with Bactrim for Prednisone dose over 20mg MRSA swab positive - Treating with Bactroban and Hibaclens to prevent further infections due to patient immunocompromised Acute on chronic sinusitis, present on admission, stable - MRI brain shows thickening of maxillary sinuses, likely related to viral URI, possible bacterial - Covered with Zosyn Chronic thrombocytopenia, pancytopenia, present on admission, worsening - per , patient has been worked up at [facility] for this and has not been able to find any etiology - unclear low platelets is part atypical symptomatology of Sweet syndrome - Blood smear with path review pending - Appreciate hematology consult with time and expertise Continue supportive care Transfuse if patient becomes hemodynamically unstable or hemoglobin below 7 D-dimer and PT/PTT negative, no schistocytes, DIC highly unlikely Further work up for primary hematological disorders as outpatient - Transfusion held due to patient being hemodynamically stable Ground level fall, present on admission, resolved - Some concern for intracranial bleed in the setting of warfarin use (INR 1.7 on 02/17/16) and thrombocytopenia. - Brain MRI were negative however. 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 Improving. 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 Referral made to [facility] [place] by SW, HH for RN,PT,OT, and BOAT MASTER, VTE Prophylaxis: SCDs VTE Mechanical Devices: Intermittant Pneumatic CD Resuscitation Status: CPR: Attempt Resuscitation Time spent 30 minutes Attending Statement I have seen and evaluated patient at bedside and directly supervised care provided by resident physician. I agree with above documentation. Javid Ma DO Feb 27, 2016 16:38 Oziel Rey DO Feb 28, 2016 07:04
--- NOTE | 2016-02-27 17:39 | PROG NOTE ---
[address] [address] PROGRESS NOTE PATIENT: ALEXANDER MAGAÑA : 1940 MR#: [id number] ADMIT: 02/17/2016 JOB ID: [id number] DATE: 02/27/2016 REASON FOR FOLLOWUP: Altered mental status due to inadequate adrenal corticoid replacement plus MRSA colonization and recent influenza. INTERVAL HISTORY: Since the increase in his steroid dose, the patient's mental status has returned basically all the way back to normal. This morning, he says he feels tired and gets a bit short of breath with exertion but otherwise feels reasonably well. He does not think he is quite ready for discharge yet. He has no fevers, chills, or sweats. He has no headache. He has a minimal cough which is occasionally productive of some thick sputum but it is infrequent. He is not short of breath at rest at all, but does become so when he exerts himself. No nausea, vomiting or diarrhea. PHYSICAL EXAMINATION: Reveals an afebrile gentleman. Temperature 36.9, pulse 80, respiratory rate 22, blood pressure 134/81. He is saturating well on 2 L. Examination of the oral cavity is unremarkable. His lungs are reasonably clear posteriorly. I do not hear any focal rales. Abdomen benign. No new skin rash though, of course, he does have the multiple crusted and healed highly pigmented areas over his lower extremities as before. LABORATORIES: Include a white count of 4400 with basically normal diff. Platelets low at 73,000, but it is improved. Creatinine 0.83. LFTs normal. Procalcitonin 0.2. Fungitell is back and negative. Galactomannan also negative. Urine Legionella negative. Crypto antigen is pending. Cultures include the flu PCR that was initially positive and a MRSA screen of the nares that was positive. Sputum from the was normal ashok. A follow-up sputum obtained on the shows rare polys and is of no value. IMPRESSION: This patient has had an amazing response to the reinstitution of higher dose steroids. At this point, he looks quite well, and I see no evidence for ongoing influenza or complications thereof. Likewise, he is MRSA colonized but I do not think that he has any significant or invasive MRSA infections. RECOMMENDATIONS: 1. I agree with the stopping of the Zosyn which was done yesterday, according to our prior recommendations. 2. I would not continue vancomycin or any systemic MRSA therapy. 3. Ten days of mupirocin to the nares would certainly be reasonable. 4. ID will go ahead and sign off at this time as I do not see any active ID issues.
[2016-02-28] VITALS (8 sets, daily range): BP systolic 122–151; BP diastolic 74–85; PULSE 74–95; RESP 20–24; O2SAT 92–98
[2016-02-28 06:37] LABS: Magnesium 1.8 mg/dL (1.6-2.6); Phosphorus 3.4 mg/dL (2.5-4.9)
[2016-02-28 06:40] LABS: INR 2.18 ratio
--- NOTE | 2016-02-28 06:46 | NUR ---
Comfort Pt slept thru the night. No complaints. Appeared comfortable. Care ongoing
[2016-02-28] MEDS: Insulin LISPRO Medium-Dose Scale SUBQ SCH ×4 (07:30→22:00)
[2016-02-28] MEDS ORDERED: KCl 40 mEq/D5W 500 mL 40 MEQ in IV Premix 1 EACH IV ONE (08:55)
[2016-02-28] MEDS: predniSONE 20 mg Tablet PO SCH (09:45)
[2016-02-28] MEDS: Mupirocin 2% 22 Gm Ointment TOPICAL SCH ×2 (09:45→22:16)
--- NOTE | 2016-02-28 15:16 | NUR ---
NUTRITION ASSESSMENT: ASSESS: 76 YO male admitted s/p fall and positive for influenza A. Pt remains in hospital for persistent hypokalemia. Pt with fair po since admit with po intake avg. of only 40%. PMHx: Sweet syndrome, hiatal hernia, PNA, cellulitis, R leg ulcer, adrenal insufficiency, DVT, anemia. LABS: Reviewed. K+ 3.1, Glu 1009, Alb 3.1. MEDS: Reviewed. GI: BM x 1 (02/26) CURRENT WT: 88.6 kg. Admit wt: 86.1 kg. DIET: Diabetic. PO intake avg of 40% x 11 days. EST. NEEDS: 4544-2755 kcals (25-30 kcals/kg BW), 105-135 g protein (1.2-1.5 g/kg BW) NUTRITION DIAGNOSIS: 1.) Inadequate oral intake related to unknown etiology as evidenced by po intake of only 40% x 11 days. NUTRITION INTERVENTION: 1.) Continue to send Glucerna BID on lunch and dinner trays. MONITOR / EVAL: PO intake, labs, nutritional status. Follow per low nutritional risk guidelines.
[2016-02-28] MEDS ORDERED: 0.9% Sodium Chloride 500 ML ONE (15:22)
--- NOTE | 2016-02-28 15:31 | PCM.PNMED ---
Subjective Date of Service Feb 28, 2016 Subjective No overnight event. Patient reports feeling better than yesterday. His breathing improves. He denies any fever, chills, night sweats. Exam Vital Signs Vital Sign - Last Date Time Temp Pulse Resp B/P Pulse Ox O2 Delivery O2 Flow Rate FiO2 02/28/16 13:49 37.1 94 20 122/78 92 Nasal Cannula 2.00 Intake and Output 02/27/16 02/27/16 02/28/16 Cumulative From/Thru 15:00 23:00 07:00 02/17/16 08:58 - 02/28/16 06:59 Intake Total 874 ml 300 ml 17778 ml Output Total 1200 ml 1050 ml 61984 ml Balance -326 ml -750 ml 40216 ml Intake Oral 400 ml 300 ml 9285 ml IV Total 474 ml 69899 ml Output Urine Total 1200 ml 1050 ml 50423 ml # Voids 20 # Bowel Movements 0 3 Exam General: comfortable, lying flat in bed, HEENT: EOMI. Anicteric sclerae, Moist Mucous Membranes Neck: Neck supple with full ROM, no JVD Chest & Lungs: b/l air sound, no crackles or coarse breathing, wheezes at the lower bases Cardiovascular: RRR, No Murmurs/Rubs/Gallops Abdomen: Soft, obese, Non-tender, Non-distended, No masses, Normoactive bowel tones, Extremities: Multiple healing ulcerations present on bilateral lower extremities, no open lesions identified. No cyanosis/clubbing/edema bilaterally Neurological: alert and oriented, no focal deficits IVs and Medications Medications Reviewed: Medications were reviewed in detail Lab and Diagnostics Result Diagram: 02/27/16 0536 02/28/16 0555 X-Rays, CTs and MRIs X-RAY CHEST, TWO VIEWS IMPRESSION: Marked tortuosity of the thoracic aorta unchanged from prior studies. No acute cardiopulmonary findings. Dictated by: Roseanne Whipple M.D. on 02/17/2016 at 12:07 Approved by: Roseanne Whipple M.D. on 02/17/2016 at 12:07 MRI Brain IMPRESSION: 1. No acute intracranial disease process. 2. Mild, diffuse volume loss. 3. Ooiy-xr-wlxuuceb periventricular, subcortical and pontine white matter chronic microvascular ischemic changes. 4. Mild bilateral maxillary sinus and ethmoid air cell mucosal thickening. Please correlate with clinical data. Dictated by: Melissa Mazariegos MD, PhD on 02/17/2016 at 19:46 Approved by: Melissa Mazariegos MD, PhD on 02/17/2016 at 19:46 Date of Service: 02/20/16 0919 X-RAY CHEST ONE VIEW ([id number]) IMPRESSION: Mildly reduced inspiratory volume, chronically mildly elevated right hemidiaphragm. Mild bibasilar atelectasis. A small degree of left lower lung pneumonia could be superimposed. Dictated by: Cory Lunsford M.D. on 02/20/2016 at 9:56 Assessment & Plan Patient is a 76 y.o. M with medical history of sweets syndrome, DVT anticoagulated with warfarin, adrenal insufficiency, chronic dyspnea, chronic steroid use, osteopenia, hyperthyroidism. Patient transferred from [facility] for treatment of worsening shortness of breath, positive influenza A, post ground level fall on warfarin. His hospitalization protracted hospitalization 2nd to development of adrenal crisis, slowly resolving with pulsed dose steroids and an increase in maintenance prednisone. Sepsis, not present on admission. Resolved. - Temp 38.0, HR 102, RR 22, hypertensive however on 02/20/16 - Chest x-ray and repeat unrevealing, procalcitonin trending down to 0.16. However, CXR 02/19 showed probable small left lower lobe pneumonia with CT chest revealing atypical pneumonia, started on Zosyn, Vanc (d/c 02/26) Viral URI, present on admission, resolved - Positive Influenza A, present on admission, Improving - Tamiflu 75 mg twice a day started on 02/17/2016, now complete - Unlikely to be ARDS based on CXR and labs - DuoNEB Q4 Q4HWA and albuterol prn while in hospital - Keep oxygen above 92% - Low threshold to test for PCP due to patient's immunosuppressed state Hypokalemia, not present on admission. active - Recurrent episodes of K+. Mg+2 consistently normal, urine K+ <20meq/L. - Likely low reserve, possibly excess mineralocorticoid, or renal related. - AM labs BMP and Mg+2 ordered Sweets Syndrome, present on admission, chronic, stable - Possible fever spike is due to neutrophilic activities. - Patient followed by [employer] Dr. Vandana Hdz at [facility] tel: , fax: [phone], MR results sent - Per , patient has been on steroids for past 6 years, does not tolerating even the smallest taper well - 100mg IV Hydrocortisone given once, followed by 50mg Q8H - Dr. Hdz consulted and recommends IV taper then switch to PO prednisone 20mg - Prednisone increased to 20mg daily to tie over from IV Hydrocortisone - Continue prednisone 20mg for the duration of this hospitalization, do not try to taper - Patient to be prophylactically treated with Bactrim for Prednisone dose over 20mg - restarted weekly methotrexate MRSA swab positive - Treating with Bactroban and Hibaclens to prevent further infections due to patient immunocompromised Acute on chronic sinusitis, present on admission, stable - MRI brain shows thickening of maxillary sinuses, likely related to viral URI, possible bacterial - Covered with Zosyn Chronic thrombocytopenia, pancytopenia, present on admission, worsening - per , patient has been worked up at [facility] for this and has not been able to find any etiology - unclear low platelets is part atypical symptomatology of Sweet syndrome - Blood smear with path review pending - Appreciate hematology consult with time and expertise Continue supportive care Transfuse if patient becomes hemodynamically unstable or hemoglobin below 7 D-dimer and PT/PTT negative, no schistocytes, DIC highly unlikely Further work up for primary hematological disorders as outpatient - Transfusion held due to patient being hemodynamically stable Ground level fall, present on admission, resolved - Some concern for intracranial bleed in the setting of warfarin use (INR 1.7 on 02/17/16) and thrombocytopenia. - Brain MRI were negative however. 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 Improving. 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 Referral made to [facility] by MAX VIEYRA for RN,PT,OT, and CREDIT REPRESENTATIVE, VTE Prophylaxis: SCDs VTE Mechanical Devices: Intermittant Pneumatic CD Resuscitation Status: CPR: Attempt Resuscitation Attending Statement The patient was seen and examined together with Dr. Javid Ma on 02/28/2016 and I have agree with the assessment and plan of care as noted above. Javid Ma DO Feb 28, 2016 15:31 Jose Miguel Campbell MD Feb 29, 2016 14:56
--- NOTE | 2016-02-28 16:11 | NUR ---
Social Work-readiness for discharge: Data:EMR Reviewed. Pt is on day 11 of hospitalization for positive influenza A per H&P. Pt may be medically stable tomorrow. PT saw pt again today and recommend home with services. Referral made to [facility] for RN,PT, OT, and [employer]. SW placed a call to Krissy and left message, awaiting a return call. F2F in folder. SW will continue to follow. Assessment:pt who would benefit from HH. Plan:Pt to discharge home with when medically stable.Referral made to [facility] for RN,PT, OT, and [employer]. SW left message for . F2F in folder. SW will continue to follow. SASKIA Nickerson
--- NOTE | 2016-02-28 17:23 | NUR ---
concerns , Krissy, called and voiced concerns regarding pt's possible discharge tomorrow (02/29/16), citing that she is concerned with his "blood levels" (H/H of 7.3/22.3), this RN assured her that pt's H/H has been stable, discussed notes from hospitalist, medical oncology, PT, and TIMBER CRUISER-plan for D/C with HH, medical onc/hospitalist recommend transfusion if hemodynamically unstable or Hgb drops below 7, discussed that pt's hgb on arrival was 8. Discussed that and pt have the right to discuss their concerns regarding discharge. thanked RN, stated that she felt "a little better knowing that there would be home health"
--- NOTE | 2016-02-28 19:41 | NUR ---
Potassium Pt has low potassium levels of 3.1. MD ordered Potassium IV. Pt reports complaints of extreme arm burning pain at IV site. IV rate reduced, but pt reports continued pain. IV changed to run concurrent with NS for dilution. Pt reports no more pain at IV site.
[2016-02-29 01:30] VITALS: BP 128/77; PULSE 70; RESP 20; O2SAT 98
[2016-02-29 04:47] VITALS: BP 132/78; PULSE 82; RESP 18; O2SAT 97
--- NOTE | 2016-02-29 05:32 | NUR ---
Noc/Uneventful Pt is pleasant and cooperative with care. Denies chest pain, sob, n/v and abd discomfort. VSS, and afebrile overnight.
[2016-02-29] MEDS: Insulin LISPRO Medium-Dose Scale SUBQ SCH ×2 (07:30→11:30)
[2016-02-29 08:05] LABS: INR 1.85 ratio
--- NOTE | 2016-02-29 08:18 | PCM.DIMED ---
Javid Ma H DO 02/29/16 0818: Discharge Instructions Date of Service Feb 29, 2016 Dates of Hospitalization Feb 17, 2016 at 08:44 Discharge Diagnosis Discharge Diagnosis Sepsis syndrome, not present on admission. Resolved. Viral URI, present on admission, resolved Hypokalemia, not present on admission. active Sweets Syndrome, present on admission, chronic, stable MRSA nose swab positive Acute on chronic sinusitis, present on admission, stable Chronic thrombocytopenia, pancytopenia, present on admission, stable Ground level fall, present on admission, resolved Hx DVT, present on admission, ongoing Steroid induced DM, present on admission, stable Right leg ulcer, present on admission. Improving. Adrenal insufficiency Iodine induced hyperthyroidism Steroid induced osteoporosis Diet Diabetic Activity No restrictions Patient Instructions You were originally here for the flu which have resolved. During the course of your stay, we tried to ween down your steroids as it can compromise the immune system. Post viral pneumonia was a big worry because you were on multiple immunosuppressive medications. We have aggressively tested you for infection and have provided antibiotics. Your prednisone have been increased on this hospitalization and will continue. Please see your order taker at first availability to discuss perhaps taper down in the future. Because you are a diabetic, on chronic, methotrexate, Humira, and prednisone, you will always have a higher risk of infections. Please come back or go to the ED should you have increasing fever, chills, night sweats While you are here, your potassium have been low. You will need follow-up with your primary care provider within a week for this. Possible referral to Nephrology. Please continue all of your other medications. Hypokalemia is a low level of potassium in your blood. Potassium helps control how your muscles, heart, and digestive system work. Hypokalemia occurs when your body loses too much potassium or does not absorb enough. Eat foods that are high in potassium: Foods that are high in potassium include bananas, tomatoes, oranges, turkey, and milk. [place] juice, citrus juices, and tomato juice are also high in potassium. Avoid caffeine. You may need to meet with a dietitian to help plan the best meals for you. Contact your healthcare provider if: * You are vomiting or have diarrhea. * You have numbness or tingling in your arms or legs. * Your symptoms do not go away or they get worse. * You have questions or concerns about your condition or care. Seek care immediately or call 911 if: * You have trouble breathing. * You cannot move your arm or leg. * You have a fast or irregular heartbeat. * You are too tired or weak to stand up. Follow-up Provider: Colt Christensen MD Follow-up with PCP in: 1 week Jose Miguel Campbell MD 02/29/16 1456: Javid Ma DO Feb 29, 2016 08:18 Jose Miguel Campbell MD Feb 29, 2016 14:56
[2016-02-29] MEDS ORDERED: PRED-508 PO (08:20)
[2016-02-29] MEDS: Mupirocin 2% 22 Gm Ointment TOPICAL SCH (09:51)
[2016-02-29 10:50] VITALS: BP 114/75; PULSE 99; RESP 20; O2SAT 96
[2016-02-29 11:08] LABS: Cryptococcal Ag Negative (Negative)
[2016-02-29] MEDS: predniSONE 20 mg Tablet PO SCH (12:33)
--- NOTE | 2016-02-29 12:34 | NUR ---
Social Work-discharge: Data:EMR Reviewed. Pt is on day 12 of hospitalization for positive flu per H&P. Pt is medically stable for discharge today. PT has been working with pt and recommending home with HH, but saw pt today and recommended SNF. SW met with pt and at bedside to discuss. Pt and feel like they would prefer to take pt home and feel like there are too many risks of having pt go to SNF ie missed medications, getting the flu again etc. states they have fww, w.c, shower bench at home, and she can get a BSC if needed. SW explained that [facility] will be calling tomorrow for set up with pt and , both agreeable. SW also explained that if they get home and cannot manage, then they can go through PCP to get into SNF with 30 day window. AZALIA updated MD who has completed discharge. AZALIA informed Emeka Jean with [facility] of discharge and faxed in orders and F2F for RN,PT,OT,and GAS B[employer]ER. Pt's to provide transport home today. AZALIA provided form for them to complete for medical records request. All updated and agreeable to plan. Assessment:Pt who is declining SNF, agreeable to HH. Plan:Pt to discharge home today via POV. F2F and orders faxed into [facility] for RN,PT,OT, and GAS BRAZER. Pt and declining SNF. All updated and agreeable to plan. Sherrill Vargas MSW
[2016-02-29] MEDS ORDERED: SULF1TAB35 PO (13:37)
--- NOTE | 2016-02-29 13:39 | PCM.DC.MED ---
Discharge Summary Date of Service Feb 29, 2016 Dates of Hospitalization Date of Hospital Admission Feb 17, 2016 at 08:44 Date of Discharge: Feb 29, 2016 Providers: Admitting Physician: Alexandra Curran MD Primary Care Physician: Colt Christensen MD Attending Physician: Alexandra Curran MD Diagnosis at Time of Discharge Diagnosis at Time of Discharge Sepsis syndrome, not present on admission. Resolved. Viral URI, present on admission, resolved Hypokalemia, not present on admission. active Sweets Syndrome, present on admission, chronic, stable MRSA nose swab positive Acute on chronic sinusitis, present on admission, stable Chronic thrombocytopenia, pancytopenia, present on admission, stable Ground level fall, present on admission, resolved Hx DVT, present on admission, ongoing Steroid induced DM, present on admission, stable Right leg ulcer, present on admission. Improving. Adrenal insufficiency Iodine induced hyperthyroidism Steroid induced osteoporosis Procedures XRay, CTs & MRIs X-RAY CHEST, TWO VIEWS IMPRESSION: Marked tortuosity of the thoracic aorta unchanged from prior studies. No acute cardiopulmonary findings. Dictated by: Roseanne Whipple M.D. on 02/17/2016 at 12:07 Approved by: Roseanne Whipple M.D. on 02/17/2016 at 12:07 MRI Brain IMPRESSION: 1. No acute intracranial disease process. 2. Mild, diffuse volume loss. 3. [id number] periventricular, subcortical and pontine white matter chronic microvascular ischemic changes. 4. Mild bilateral maxillary sinus and ethmoid air cell mucosal thickening. Please correlate with clinical data. Dictated by: Melissa Mazariegos MD, PhD on 02/17/2016 at 19:46 Approved by: Melissa Mazariegos MD, PhD on 02/17/2016 at 19:46 Date of Service: 02/20/16 0919 X-RAY CHEST ONE VIEW ([id number]) IMPRESSION: Mildly reduced inspiratory volume, chronically mildly elevated right hemidiaphragm. Mild bibasilar atelectasis. A small degree of left lower lung pneumonia could be superimposed. Dictated by: Cory Lunsford M.D. on 02/20/2016 at 9:56 PROCEDURE: CT CHEST WITHOUT CONTRAST INDICATIONS: pulm infiltrates in ICH IMPRESSION: 1. Moderate bilateral atypical pneumonia. 2. Decreased left hepatic lobe mass. 3. No change in moderate hiatal hernia. Dictated by: Migel Cortes M.D. on 02/22/2016 at 14:07 Brief History Patient is a 76 y.o. M with medical history of sweets syndrome, DVT anticoagulated with warfarin, adrenal insufficiency, chronic dyspnea, chronic steroid use, osteopenia, hyperthyroidism. Patient transferred from [facility] for worsening shortness of breath, positive influenza A, post ground level fall on warfarin. Patient stated that he began to feel dizzy and short of breath two days ago precipitating his first fall onto concrete where he stated he tripped and hit his nose. Patient stated that with his shortness of breath he has had a cough, headache, fever and chills, runny nose. Patient did not seek medical attention. The follow day patient woke up feeling dizzy and nauseous, while walking around his house patient stated his shortness of breath and dizziness worsened and he fell onto carpet hitting his head. Patient is able to remember falling and able to recall events before and after his fall. Patient reports that his is sick at home with the flu and he received the flu vaccine but had a "bad reaction" to it. Patient denies diarrhea, constipation, loss of bowel and bladder control. Hospital Course Patient is a 76 y.o. M with medical history of sweets syndrome, DVT anticoagulated with warfarin, adrenal insufficiency, chronic dyspnea, chronic steroid use, osteopenia, hyperthyroidism. Patient transferred from [facility] for treatment of worsening shortness of breath, positive influenza A, post ground level fall on warfarin. While inpatient patient continue fever with worsening pulmonary function. In the setting of immunocompromised, extensive infectious workup was done. He received 5>days of vancomycin and Zosyn. Blood cultures negative however. More likely, patient had adrenal crisis and flaring of sweets syndrome. Prednisone at prescribed outpatient dosed had to thus be increased to 20mg daily. While inpatient, Luis Alberto also had persistent low potassium. Please follow-up with patient in 1wk. Sepsis, not present on admission. Resolved. - Temp 38.0, HR 102, RR 22, hypertensive however on 02/20/16 - Chest x-ray and repeat unrevealing, procalcitonin trending down to 0.16. However, CXR 02/19 showed probable small left lower lobe pneumonia with CT chest revealing atypical pneumonia, started on Zosyn, Vanc (d/c 1/22) Viral URI, present on admission, resolved - Positive Influenza A, present on admission, Improving - Tamiflu 75 mg twice a day started on 02/17/2016, now complete - Unlikely to be ARDS based on CXR and labs - DuoNEB Q4 Q4HWA and albuterol prn while in hospital - Keep oxygen above 92% - Low threshold to test for PCP due to patient's immunosuppressed state Hypokalemia, not present on admission. active - Recurrent episodes of K+. Mg+2 consistently normal, urine K+ <20meq/L. - Likely low reserve, possibly excess mineralocorticoid, or renal related. - Will need follow-up BMP in 1wk. possible referral to Nephrology Sweets Syndrome, present on admission, chronic, stable - Possible fever spike is due to neutrophilic activities. - Patient followed by Co[facility] Associate Dr. Vandana Hzd at [facility] tel: [phone], fax: [phone], MR results sent - Per , patient has been on steroids for past 6 years, does not tolerating even the smallest taper well - 100mg IV Hydrocortisone given once, followed by 50mg Q8H - Dr. Hdz consulted and recommends IV taper then switch to PO prednisone 20mg - Currently on Humira, methotrexate, and prednisone. - Patient to be prophylactically treated with Bactrim for Prednisone dose over 20mg MRSA swab positive - Finished Bactroban and Hibaclens to prevent further infections due to patient immunocompromised Acute on chronic sinusitis, present on admission, stable - MRI brain shows thickening of maxillary sinuses, likely related to viral URI, possible bacterial - Was covered with Zosyn Chronic thrombocytopenia, pancytopenia, present on admission, worsening - per , patient has been worked up at [facility] for this and has not been able to find any etiology - unclear low platelets is part atypical symptomatology of Sweet syndrome - Blood smear with path review unremarkable - Appreciate hematology consult with time and expertise Continue supportive care Transfuse if patient becomes hemodynamically unstable or hemoglobin below 7 D-dimer and PT/PTT negative, no schistocytes, DIC highly unlikely Further work up for primary hematological disorders as outpatient - Transfusion held due to patient being hemodynamically stable Ground level fall, present on admission, resolved - Some concern for intracranial bleed in the setting of warfarin use (INR 1.7 on 02/17/16) and thrombocytopenia. - Brain MRI were negative however. 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 Improving. - Patient seen by wound care as outpatient - Monitor, consult wound care if needed Adrenal insufficiency - Continue Prednisone Iodine induced hyperthyroidism - TSH ordered, 1.18 Steroid induced osteoporosis - Continue to monitor Exam Vital Signs (Last) Date Time Temp Pulse Resp B/P Pulse Ox O2 Delivery O2 Flow Rate FiO2 02/29/16 10:50 36.3 99 20 114/75 96 Nasal Cannula 2.00 Test 02/17/16 09:35 02/18/16 05:28 02/20/16 06:00 02/20/16 10:26 Hemoglobin A1c 6.6% (4.8-5.6) Thyroid Stimulating Hormone (TSH) 1.180uIU/mL (0.450-4.500) Lactic Acid Level 1.0mmol/L (0.4-2.0) Hematology Comments Blood Smear Pathologist Review Test 02/20/16 15:15 02/22/16 06:03 02/22/16 12:59 02/24/16 06:25 Urine Color Yellow (YELLOW) Urine Appearance Clear (CLEAR,HAZY) Urine pH 6.0 (5.0-8.0) Urine Specific [place] 1.025 (1.003-1.035) Urine Protein Negativemg/dL (NEG,TRACE) Urine Glucose (UA) Negativemg/dL (NEGATIVE) Urine Ketones 15mg/dL (NEGATIVE) Urine Occult Blood Large (NEGATIVE) Urine Nitrite Negative (NEGATIVE) Urine Bilirubin Negative (NEGATIVE) Urine Urobilinogen Normalmg/dL (NORMAL) Urine Leukocyte Esterase Negative (NEGATIVE) Urine RBC 3-10/hpf (0-2) Urine WBC 0-5/hpf (0-5) Urine Epithelial Cells None/hpf (NONE-MOD) Urine Crystals None seen (NONE SEEN) Urine Bacteria Few/hpf (NONE-FEW) Urine Hyaline Casts None/lpf (NONE) Urine Granular Casts None seen (NONE SEEN) Urine Waxy Casts None seen (NONE SEEN) Urine Red Blood Cell Casts None seen (NONE SEEN) Urine White Blood Cell Casts None seen (NONE SEEN) Urine Mucus Present (None Seen) Urine Trichomonas None seen (NONE SEEN) Urine Yeast None (NONE SEEN) Urinalysis Comment None Urine Culture Reflexed Indicated Lactate Dehydrogenase 248U/L (100-190) Cryptococcus Antigen Negative (Negative) Fungal Antibodies <31pg/mL (.) Aspergillus galactomannan Antigen 0.05Index (0.00-0.49) Metamyelocytes % 1% (0-0) D-Dimer < 0.5mg/L FEU (<0.50) Test 02/24/16 09:00 02/25/16 05:45 02/26/16 06:00 02/26/16 15:27 Urine Legionella pneumophilia Ag Negative (Negative) Procalcitonin 0.21ng/mL (See Comment) Total Bilirubin 0.3mg/dL (0.0-1.2) Aspartate Amino Transf (AST/SGOT) 14U/L (0-50) Alanine Aminotransferase (ALT/SGPT) 10U/L (0-44) Alkaline Phosphatase 33U/L (25-160) Total Protein 5.8g/dL (6.4-8.4) Albumin 3.1g/dL (3.4-5.0) Hold Purple Top Tube Received (Received) Test 02/26/16 16:43 02/27/16 05:36 02/27/16 16:38 02/28/16 05:55 Vancomycin Level Trough 13.5mcg/mL White Blood Count 4.4th/mm3 (3.8-10.1) Red Blood Count 2.09mil/mm3 (4.40-5.80) Hemoglobin 7.3g/dL (13.8-17.2) Hematocrit 22.3% (41.0-50.0) Mean Corpuscular Volume 106.7fL (81-100) Mean Corpuscular Hemoglobin 34.9pg (27.0-35.0) Mean Corpuscular Hemoglobin Concent 32.7% (32.0-37.0) Red Cell Distribution Width 14.9% (12.3-15.4) Platelet Count 73bil/L (150-400) Neutrophils (%) (Auto) 60% (40-74) Lymphocytes (%) (Auto) 29% (14-46) Monocytes (%) (Auto) 6% (4-12) Eosinophils (%) (Auto) 1% (0-5) Basophils (%) (Auto) 1% (0-3) Band Neutrophils % 2% (1-5) Myelocytes % 1% (0-0) Urine Random Potassium 17.9mEq/L Phosphorus Level 3.4mg/dL (2.5-4.9) Magnesium Level 1.8mg/dL (1.6-2.6) Test 02/29/16 05:59 02/29/16 07:45 Sodium Level 136mEq/L (134-144) Potassium Level 3.6mEq/L (3.5-5.2) Chloride Level 96mEq/L (97-108) Carbon Dioxide Level 28mmol/L (18-29) Blood Urea Nitrogen 12mg/dL (8-27) Creatinine 0.80mg/dL (0.76-1.27) Estimat Glomerular Filtration Rate 100mL/min (>59) Glucose Level 120mg/dL (60-99) Calcium Level 8.4mg/dL (8.5-10.1) Prothrombin Time 20.0sec (8.1-12.5) Prothromb Time International Ratio 1.85ratio Discharge Medications Discharge Medications Adalimumab (Humira) 40 Mg/0.8 Ml Pen.ij.kit 40 MG SQ U4Ikjgw (Reported) Calcitonin,[place],Synthetic (Calcitonin-[place]) 3.7 Ml [place].pump 1 SPRAY NASAL DAILY (Reported) Cholecalciferol (Vitamin D3) (Vitamin D3) 1,000 Unit Tab.chew 1,000 UNIT PO DAILY (Reported) Gabapentin (Gabapentin) 300 Mg Capsule 600 MG PO HS (Reported) Leucovorin Calcium (Leucovorin Calcium) 5 Mg Tablet 5 MG PO Mondays (Reported) Metformin (Metformin) 500 Mg Tablet 500 MG PO BID (Reported) Methotrexate Sodium (Methotrexate) 2.5 Mg Tablet 10 MG PO WEEKLY (Reported) Omeprazole (Omeprazole) 20 Mg Capsule.dr 20 MG PO DAILY (Reported) Prednisone (Deltasone) 20 Mg Tablet 20 MG PO DAILY Prescribed by: RICHARD MA DO Sulfamethoxazole/Trimeth 800-160 mg (Bactrim DS 800-160 mg) 1 Each Tablet 1 TABLET PO DAILY Prescribed by: RICHARD H MA, DO Warfarin Sodium (Warfarin Sodium) 2.5 Mg Tablet 2.5 MG PO DAILY (Reported) Followup Plan Discharge Diet: Diabetic Discharge Activity: No restrictions Patient Instructions You were originally here for the flu which have resolved. During the course of your stay, we tried to ween down your steroids as it can compromise the immune system. Post viral pneumonia was a big worry because you were on multiple immunosuppressive medications. We have aggressively tested you for infection and have provided antibiotics. Your prednisone have been increased on this hospitalization and will continue. 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 Because you are a diabetic, on chronic, methotrexate, Humira, and prednisone, you will always have a higher risk of infections. Please come back or go to the ED should you have increasing fever, chills, night sweats While you are here, your potassium have been low. You will need follow-up with your primary care provider within a week for this. Possible referral to Nephrology. Please continue all of your other medications. Hypokalemia is a low level of potassium in your blood. Potassium helps control how your muscles, heart, and digestive system work. Hypokalemia occurs when your body loses too much potassium or does not absorb enough. Eat foods that are high in potassium: Foods that are high in potassium include bananas, tomatoes, oranges, turkey, and milk. [place] juice, citrus juices, and tomato juice are also high in potassium. Avoid caffeine. You may need to meet with a dietitian to help plan the best meals for you. Contact your healthcare provider if: * You are vomiting or have diarrhea. * You have numbness or tingling in your arms or legs. * Your symptoms do not go away or they get worse. * You have questions or concerns about your condition or care. Seek care immediately or call 911 if: * You have trouble breathing. * You cannot move your arm or leg. * You have a fast or irregular heartbeat. * You are too tired or weak to stand up. Follow-up Provider: Colt Christensen MD Follow-up with PCP in: 1 week Time spent 30 minutes Attending Statement The patient was seen and examined together with Dr. Richard Ma on 02/29/2016 and I have agree with the assessment and plan of care as noted above. Richard Ma DO Feb 29, 2016 13:39 Jose Miguel Campbell MD Feb 29, 2016 14:57
[2016-02-29 14:33] VITALS: BP 126/80; PULSE 90; RESP 22; O2SAT 95
--- NOTE | 2016-02-29 15:15 | NUR ---
DISCHARGE Discharge packet, care notes, medication information reviewed and signature obtained. IV DC'd intact, tele removed, all possessions with pt. Patient information/medical records requested by pt. Request form signed and sent in for processing. Pt informed that records will be mailed once reviewed/completed. Pt taken curbside in WC as picked up in car, no s/sx of distress.
== END 2016-02-29 15:19 | disposition home health service (06) | DRG 193 ==
LOC: PCC 08:44 → MPC 02-18 12:00
PROVIDERS: ADMIT Specialist; ATTEND Internal Medicine
PROC: 4A033R1 Measurement of Arterial Saturation, Peripheral, Percutaneous Approach (ICD-10-PCS; principal; 2016-02-22)
DX: J10.1 Influenza due to other identified influenza virus with other respiratory manifestations (principal); A41.9 Sepsis, unspecified organism; G93.40 Encephalopathy, unspecified; D61.818 Other pancytopenia; E27.40 Unspecified adrenocortical insufficiency; L97.919 Non-pressure chronic ulcer of unspecified part of right lower leg with unspecified severity; L98.2 Febrile neutrophilic dermatosis [Sweet]; J18.9 Pneumonia, unspecified organism; J01.90 Acute sinusitis, unspecified; E09.8 Drug or chemical induced diabetes mellitus with unspecified complications; E05.80 Other thyrotoxicosis without thyrotoxic crisis or storm; M81.8 Other osteoporosis without current pathological fracture; Z86.718 Personal history of other venous thrombosis and embolism; Z79.01 Long term (current) use of anticoagulants; Z91.81 History of falling; E87.6 Hypokalemia; Z22.322 Carrier or suspected carrier of Methicillin resistant Staphylococcus aureus